=== PATIENT | male | born 1980 | race Caucasian/White ===

== ENCOUNTER 2020-04-24 17:52 | Inpatient (IN) | payer BC ==
[2020-04-24] MEDS ORDERED: Sodium Chloride 0.9% 10 ML Syringe FLUSH PRN (18:26)
[2020-04-24] MEDS ORDERED: Sodium Chloride 0.9% 1,000 ML IV ONE ×2 (18:28→19:43)
[2020-04-24] MEDS ORDERED: Ondansetron 4 MG/2 ML SDV IVPUSH ONE (18:29)
--- NOTE | 2020-04-24 18:38 | EDM.PDOC ---
ED HPI GENERAL MEDICAL PROBLEM - General Chief Complaint: Gastrointestinal Problem Stated Complaint: VOMITING Time Seen by Provider: 04/24/20 18:17 Source of Information: Reports: Patient, Family (), RN Notes Reviewed History Limitations: Reports: No Limitations - History of Present Illness INITIAL COMMENTS - FREE TEXT/NARRATIVE: Patient is a 40-year-old male who presents to the ED for the evaluation of his nausea and vomiting. Patient states last Tuesday, he started having some abdominal fullness feelings and epigastric pain. He notes that his made him see a provider, and he was found to have a blood glucose of over 400 at that time and he was clinically diagnosed with type 2 diabetes mellitus, he was started on metformin and Jardiance for this, and states that his blood sugar checks have all been under 200 at home. Patient states today he woke up feeling nauseous and lightheaded, and did vomit a few times. He notes that he took his blood glucose at around 3:30 PM, and it was found to be 175. Patient' s primary care provider is Jess Bowen. Patient is complaining of abdominal fullness with associated darker colored stools, darker colored vomit, the thought it looked like coffee ground emesis, he states that he is burping quite frequently as well, he is not complaining of any dysuria, and states that his urinary frequency has gotten better since starting the metformin and Jardiance. He denies fever/chills, cough/SOB, or any other recent illness. Patient would characterizes epigastric pain as a dull ache in nature. He denies any sort of abdominal surgeries that he has had. Abdomen Pain Score (Numeric/FACES): 3 - Related Data Allergies Allergy/AdvReac Type Severity Reaction Status Date / Time No Known Allergies Allergy Verified 04/24/20 18:14 Home Meds: Home Meds Empagliflozin [Jardiance] 10 mg PO DAILY 04/24/20 [History] metFORMIN [Glucophage] 500 mg PO BIDMEALS 04/24/20 [History] Past Medical History Cardiovascular History: Reports: Hypertension Gastrointestinal History: Reports: Diverticulosis Endocrine/Metabolic History: Reports: Diabetes, Type II, Obesity/BMI 30+ - Past Surgical History Musculoskeletal Surgical History: Reports: Other (See Below) Other Musculoskeletal Surgeries/Procedures:: L foot surgery Social & Family History - Tobacco Use Smoking Status *Q: Never Smoker Second Hand Smoke Exposure: No - Caffeine Use Caffeine Use: Reports: None - Recreational Drug Use Recreational Drug Use: No ED ROS GENERAL - Review of Systems Review Of Systems: Comprehensive ROS is negative, except as noted in HPI. ED EXAM, GI/ABD - Physical Exam Exam: See Below Exam Limited By: No Limitations General Appearance: Alert, WD/WN, No Apparent Distress (Patient does have a mildly fruity order to him.) Eyes: Bilateral: Normal Appearance Ears: Normal External Exam Nose: Normal Inspection Throat/Mouth: Normal Inspection, Normal Lips, Normal Teeth, Normal Gums, Normal Oropharynx, Normal Voice, No Airway Compromise Head: Atraumatic, Normocephalic Neck: Normal Inspection Respiratory/Chest: No Respiratory Distress, Lungs Clear, Normal Breath Sounds, No Accessory Muscle Use, Chest Non-Tender Cardiovascular: Normal Peripheral Pulses, Regular Rate, Rhythm, No Murmur GI/Abdominal Exam: Soft, No Distention (no obvious distension, pt does have a rather obese abdomen, so this would be difficult to appreciate), Tender (LLQ mainly), Abnormal Bowel Sounds (slightly hypoactive) Extremities: Normal Inspection, Normal Capillary Refill Neurological: Alert, Oriented, Normal Cognition, No Motor/Sensory Deficits Psychiatric: Normal Affect, Normal Mood Skin Exam: Warm, Dry, Intact, Normal Color, No Rash EKG INTERPRETATION EKG Date: 04/24/20 Time: 18:55 Rhythm: NSR (sinus tach) Rate (Beats/Min): 112 Wendel: Normal P-Wave: Present QRS: Normal ST-T: Normal QT: Normal Comparison: NA - No Prior EKG EKG Interpretation Comments: No obvious ischemia or acute ST changes noted, reviewed by myself and Dr. Baxter. Course - Vital Signs Last Recorded V/S: Last Vital Signs Temp 97.3 F 04/24/20 18:09 Pulse 118 H 04/24/20 18:09 Resp 20 04/24/20 18:09 BP 146/115 H 04/24/20 18:09 Pulse Ox 99 04/24/20 18:09 - Orders/Labs/Meds Orders: Active Orders 24 hr Category Date Time Status Blood Glucose Check, Bedside [RC] STAT Care 04/24/20 18:27 Active Cardiac Monitoring [RC] CONTINUOUS Care 04/24/20 18:27 Active EKG Documentation Completion [RC] STAT Care 04/24/20 18:48 Ordered POC Glucose [Blood Glucose Check, Bedside] [RC] Q1HR Care 04/24/20 20:26 Ordered Peripheral IV Care [RC] . DIRECTED Care 04/24/20 18:27 Ordered Chest 1V Frontal [CR] Stat Exams 04/24/20 20:24 Ordered ABG [BLOOD GAS ARTERIAL] [BG] Stat Lab 04/24/20 19:51 Ordered DRUG SCREEN, URINE [URCHEM] Stat Lab 04/24/20 20:32 LACTATE SEPSIS W/ REFLEX [CHEM] Stat Lab 04/24/20 19:39 Ordered UA W/MICROSCOPIC [URIN] Stat Lab 04/24/20 20:16 Results Dextrose 5%-0.45% NaCl [Dextrose 5%-1/2 NS] 1,000 ml Med 04/24/20 20:45 Ordered IV ASDIRECTED Sodium Chloride 0.9% [Normal Saline] 1,000 ml Med 04/24/20 19:43 Ordered IV ONETIME Sodium Chloride 0.9% [Saline Flush] Med 04/24/20 18:26 Active 10 ml FLUSH ASDIRECTED PRN Peripheral IV Insertion Adult [OM.PC] Stat Oth 04/24/20 18:27 Ordered Medication Orders Sodium Chloride (Normal Saline) 1,000 mls @ 999 mls/hr IV ONETIME ONE Stop: 04/24/20 20:43 Last Admin: 04/24/20 20:06 Dose: 999 mls/hr Sodium Chloride (Saline Flush) 10 ml FLUSH ASDIRECTED PRN PRN Reason: Keep Vein Open Last Admin: 04/24/20 18:50 Dose: 10 ml Labs: Laboratory Tests 04/24/20 04/24/20 04/24/20 Range/Units 18:35 18:39 18:39 WBC 11.97 H (4.23-9.07) K/mm3 RBC 5.53 (4.63-6.08) M/mm3 Hgb 17.9 H D (13.7-17.5) gm/dl Hct 52.4 H (40.1-51.0) % MCV 94.8 H (79.0-92.2) fl MCH 32.4 H (25.7-32.2) pg MCHC 34.2 (32.2-35.5) g/dl RDW Std Deviation 45.5 H (35.1-43.9) fL Plt Count 261 (163-337) K/mm3 MPV 11.2 (9.4-12.3) fl Neut % (Auto) 62.8 (34.0-67.9) % Lymph % (Auto) 27.7 (21.8-53.1) % [place] % (Auto) 6.4 (5.3-12.2) % Eos % (Auto) 0.5 L (0.8-7.0) Baso % (Auto) 0.4 (0.1-1.2) % Neut # (Auto) 7.51 H (1.78-5.38) K/mm3 Lymph # (Auto) 3.32 (1.32-3.57) K/mm3 [place] # (Auto) 0.77 (0.30-0.82) K/mm3 Eos # (Auto) 0.06 (0.04-0.54) K/mm3 Baso # (Auto) 0.05 (0.01-0.08) K/mm3 Manual Slide Review VBG pH 7.11 L (7.30-7.40) Sodium (136-145) mEq/L Potassium (3.5-5.1) mEq/L Chloride (98-107) mEq/L Carbon Dioxide (21-32) mEq/L Anion Gap (5-15) BUN (7-18) mg/dL Creatinine (0.7-1.3) mg/dL Est Cr Clr Drug Dosing mL/min Estimated GFR (MDRD) (>60) mL/min BUN/Creatinine Ratio (14-18) Glucose (74-106) mg/dL POC Glucose (70-105) mg/dL Serum Osmolality (280-300) mosm/kg Calcium (8.5-10.1) mg/dL Magnesium (1.8-2.4) mg/dl Total Bilirubin (0.2-1.0) mg/dL AST (15-37) U/L ALT (16-63) U/L Alkaline Phosphatase (46-116) U/L Total Protein (6.4-8.2) g/dl Albumin (3.4-5.0) g/dl Globulin gm/dL Albumin/Globulin Ratio (1-2) Lipase (73-393) U/L Urine Color (Yellow) Urine Appearance (Clear) Urine pH (5.0-8.0) Ur Specific [place] (1.005-1.030) Urine Protein (Negative) Urine Glucose (UA) (Negative) Urine Ketones (Negative) Urine Occult Blood (Negative) Urine Nitrite (Negative) Urine Bilirubin (Negative) Urine Urobilinogen (0.2-1.0) Ur Leukocyte Esterase (Negative) Ketones 7.52 (0.0-0.3) mM 04/24/20 04/24/20 04/24/20 Range/Units 18:39 18:55 20:16 WBC (4.23-9.07) K/mm3 RBC (4.63-6.08) M/mm3 Hgb (13.7-17.5) gm/dl Hct (40.1-51.0) % MCV (79.0-92.2) fl MCH (25.7-32.2) pg MCHC (32.2-35.5) g/dl RDW Std Deviation (35.1-43.9) fL Plt Count (163-337) K/mm3 MPV (9.4-12.3) fl Neut % (Auto) (34.0-67.9) % Lymph % (Auto) (21.8-53.1) % [place] % (Auto) (5.3-12.2) % Eos % (Auto) (0.8-7.0) Baso % (Auto) (0.1-1.2) % Neut # (Auto) (1.78-5.38) K/mm3 Lymph # (Auto) (1.32-3.57) K/mm3 [place] # (Auto) (0.30-0.82) K/mm3 Eos # (Auto) (0.04-0.54) K/mm3 Baso # (Auto) (0.01-0.08) K/mm3 Manual Slide Review VBG pH (7.30-7.40) Sodium 136 (136-145) mEq/L Potassium 5.2 H (3.5-5.1) mEq/L Chloride 102 (98-107) mEq/L Carbon Dioxide 12 L D (21-32) mEq/L Anion Gap 27.2 H (5-15) BUN 14 (7-18) mg/dL Creatinine 1.2 (0.7-1.3) mg/dL Est Cr Clr Drug Dosing 91.61 mL/min Estimated GFR (MDRD) > 60 (>60) mL/min BUN/Creatinine Ratio 11.7 L (14-18) Glucose 188 H (74-106) mg/dL POC Glucose 163 H (70-105) mg/dL Serum Osmolality 311 H (280-300) mosm/kg Calcium 8.6 (8.5-10.1) mg/dL Magnesium 2.5 H (1.8-2.4) mg/dl Total Bilirubin 0.8 (0.2-1.0) mg/dL AST 83 H (15-37) U/L ALT 133 H (16-63) U/L Alkaline Phosphatase 89 (46-116) U/L Total Protein 9.0 H (6.4-8.2) g/dl Albumin 4.1 (3.4-5.0) g/dl Globulin 4.9 gm/dL Albumin/Globulin Ratio 0.8 L (1-2) Lipase 138 (73-393) U/L Urine Color Light yellow (Yellow) Urine Appearance Clear (Clear) Urine pH 5.5 (5.0-8.0) Ur Specific [place] > or = 1.030 (1.005-1.030) Urine Protein 2+ H (Negative) Urine Glucose (UA) 2+ H (Negative) Urine Ketones 3+ H (Negative) Urine Occult Blood Trace-lysed H (Negative) Urine Nitrite Negative (Negative) Urine Bilirubin Negative (Negative) Urine Urobilinogen 0.2 (0.2-1.0) Ur Leukocyte Esterase Negative (Negative) Ketones (0.0-0.3) mM 06//20 Range/Units 20:37 WBC (4.23-9.07) K/mm3 RBC (4.63-6.08) M/mm3 Hgb (13.7-17.5) gm/dl Hct (40.1-51.0) % MCV (79.0-92.2) fl MCH (25.7-32.2) pg MCHC (32.2-35.5) g/dl RDW Std Deviation (35.1-43.9) fL Plt Count (163-337) K/mm3 MPV (9.4-12.3) fl Neut % (Auto) (34.0-67.9) % Lymph % (Auto) (21.8-53.1) % [place] % (Auto) (5.3-12.2) % Eos % (Auto) (0.8-7.0) Baso % (Auto) (0.1-1.2) % Neut # (Auto) (1.78-5.38) K/mm3 Lymph # (Auto) (1.32-3.57) K/mm3 [place] # (Auto) (0.30-0.82) K/mm3 Eos # (Auto) (0.04-0.54) K/mm3 Baso # (Auto) (0.01-0.08) K/mm3 Manual Slide Review VBG pH (7.30-7.40) Sodium (136-145) mEq/L Potassium (3.5-5.1) mEq/L Chloride (98-107) mEq/L Carbon Dioxide (21-32) mEq/L Anion Gap (5-15) BUN (7-18) mg/dL Creatinine (0.7-1.3) mg/dL Est Cr Clr Drug Dosing mL/min Estimated GFR (MDRD) (>60) mL/min BUN/Creatinine Ratio (14-18) Glucose (74-106) mg/dL POC Glucose 160 H (70-105) mg/dL Serum Osmolality (280-300) mosm/kg Calcium (8.5-10.1) mg/dL Magnesium (1.8-2.4) mg/dl Total Bilirubin (0.2-1.0) mg/dL AST (15-37) U/L ALT (16-63) U/L Alkaline Phosphatase (46-116) U/L Total Protein (6.4-8.2) g/dl Albumin (3.4-5.0) g/dl Globulin gm/dL Albumin/Globulin Ratio (1-2) Lipase (73-393) U/L Urine Color (Yellow) Urine Appearance (Clear) Urine pH (5.0-8.0) Ur Specific [place] (1.005-1.030) Urine Protein (Negative) Urine Glucose (UA) (Negative) Urine Ketones (Negative) Urine Occult Blood (Negative) Urine Nitrite (Negative) Urine Bilirubin (Negative) Urine Urobilinogen (0.2-1.0) Ur Leukocyte Esterase (Negative) Ketones (0.0-0.3) mM Meds: Medications Generic Name Dose Route Start Last Admin Trade Name Freq PRN Reason Stop Dose Admin Sodium Chloride 1,000 mls @ 999 mls/hr 04/24/20 19:43 04/24/20 20:06 Normal Saline IV 04/24/20 20:43 999 mls/hr ONETIME ONE Administration Sodium Chloride 10 ml 04/24/20 18:26 04/24/20 18:50 Saline Flush FLUSH 10 ml ASDIRECTED PRN Administration Keep Vein Open Discontinued Medications Generic Name Dose Route Start Last Admin Trade Name Freq PRN Reason Stop Dose Admin Sodium Chloride 1,000 mls @ 999 mls/hr 04/24/20 18:28 04/24/20 18:50 Normal Saline IV 04/24/20 19:28 999 mls/hr ASDIRECTED ONE Administration Lactated Ringer's 1,000 mls @ 250 mls/hr 04/24/20 20:30 Ringers, Lactated IV ASDIRECTED YVROSE Ondansetron HCl 4 mg 04/24/20 18:29 04/24/20 18:50 Zofran IVPUSH 04/24/20 18:30 4 mg ONETIME ONE Administration - Re-Assessments/Exams Free Text/Narrative Re-Assessment/Exam: 04/24/20 19:46 Patient presents to the ED for evaluation of a few different complaints. I am mostly concerned about his ketotic smell on appearance, blood sugars at bedside and on the metabolic panel were 163 and 188 respectively. His white blood cell count is modestly elevated at 11.97 with 2% bandemia, his venous pH is acidotic at 7.11, potassium is elevated at 5.2, bicarb 4, dioxide is low at 12, anion gap severely elevated at 27.2, creatinine is within normal range at 1.2 at this time, ketones are 7.52 which would point to ketoacidosis in nature, I did go over all of these labs with Dr. Estrada, and he would agree but finds it suspicious that the patient's blood glucose does not reflect this. He does recommend getting a lactic acid to see if this is a lactic acidosis. The second liter of IV fluids has been ordered for electrolyte disturbance. Will also order an ABG. Patient will likely need hospital admission at this time. Abdomen x-ray is done, however due to his obesity, I will await radiology read for official opinion. There are no obvious air fluid levels 04/24/20 20:12 Official radiology read does demonstrate slight increased stool within the colon , abdomen does appear rather gasless as well. 04/24/20 20:38 Case was discussed with Dr. Jin, he does accept the patient for admission to the ICU, and would like the patient to be on D5 half-normal saline at a rate of 200 mils per hour. Departure - Departure Time of Disposition: 20:39 Disposition: Admitted As Inpatient 68 Condition: Good Clinical Impression: DKA (diabetic ketoacidosis) Qualifiers: Diabetes mellitus type: type 2 Diabetes mellitus complication detail: without coma Qualified Code(s): E11.10 - Type 2 diabetes mellitus with ketoacidosis without coma - Discharge Information *PRESCRIPTION DRUG MONITORING PROGRAM REVIEWED*: No *COPY OF PRESCRIPTION DRUG MONITORING REPORT IN PATIENT LORENZO: No Referrals: Jess Bowen MD [Primary Care Provider] - Forms: ED Department Discharge Sepsis Event Note - Evaluation Sepsis Screening Result: No Definite Risk - Focused Exam Vital Signs: Vital Signs Temp Pulse Resp BP Pulse Ox 04/24/20 18:09 97.3 F 118 H 20 146/115 H 99 Date Exam was Performed: 04/24/20 Time Exam was Performed: 20:38 - My Orders Last 24 Hours: My Active Orders 04/24/20 18:26 Sodium Chloride 0.9% [Saline Flush] 10 ml FLUSH ASDIRECTED PRN 04/24/20 18:27 Blood Glucose Check, Bedside [RC] STAT Cardiac Monitoring [RC] CONTINUOUS Peripheral IV Care [RC] . DIRECTED Peripheral IV Insertion Adult [OM.PC] Stat 04/24/20 18:48 EKG Documentation Completion [RC] STAT 04/24/20 19:39 LACTATE SEPSIS W/ REFLEX [CHEM] Stat 04/24/20 19:43 Sodium Chloride 0.9% [Normal Saline] 1,000 ml IV ONETIME 04/24/20 19:51 ABG [BLOOD GAS ARTERIAL] [BG] Stat 04/24/20 20:16 UA W/MICROSCOPIC [URIN] Stat 04/24/20 20:24 Chest 1V Frontal [CR] Stat 04/24/20 20:26 POC Glucose [Blood Glucose Check, Bedside] [RC] Q1HR 04/24/20 20:32 DRUG SCREEN, URINE [URCHEM] Stat 04/24/20 20:45 Dextrose 5%-0.45% NaCl [Dextrose 5%-1/2 NS] 1,000 ml IV ASDIRECTED - Assessment/Plan Last 24 Hours: My Active Orders 04/24/20 18:26 Sodium Chloride 0.9% [Saline Flush] 10 ml FLUSH ASDIRECTED PRN 04/24/20 18:27 Blood Glucose Check, Bedside [RC] STAT Cardiac Monitoring [RC] CONTINUOUS Peripheral IV Care [RC] . DIRECTED Peripheral IV Insertion Adult [OM.PC] Stat 04/24/20 18:48 EKG Documentation Completion [RC] STAT 04/24/20 19:39 LACTATE SEPSIS W/ REFLEX [CHEM] Stat 04/24/20 19:43 Sodium Chloride 0.9% [Normal Saline] 1,000 ml IV ONETIME 04/24/20 19:51 ABG [BLOOD GAS ARTERIAL] [BG] Stat 04/24/20 20:16 UA W/MICROSCOPIC [URIN] Stat 04/24/20 20:24 Chest 1V Frontal [CR] Stat 04/24/20 20:26 POC Glucose [Blood Glucose Check, Bedside] [RC] Q1HR 04/24/20 20:32 DRUG SCREEN, URINE [URCHEM] Stat 04/24/20 20:45 Dextrose 5%-0.45% NaCl [Dextrose 5%-1/2 NS] 1,000 ml IV ASDIRECTED
--- NOTE | 2020-04-24 20:08 | CR ---
Abdomen: Supine and upright views of the abdomen were obtained. Abdomen is rather gasless which can be seen normally. Small calcification is seen within the left lower pelvis most likely due to phlebolith. No free air is seen. Bony structures appear within normal limits for the patient's age. Slight increased stool within the colon is seen. Impression: 1. Slight increased within the colon. 2. Nothing acute is appreciated. Diagnostic code #2 This report was dictated in MDT
[2020-04-24] MEDS ORDERED: Lactated Ringers 1,000 ML IV SCH (20:30)
[2020-04-24] MEDS: Dextrose 5%-0.45% NaCl 1,000 ML IV SCH (21:19)
[2020-04-24] MEDS ORDERED: Metoclopramide 10 MG/2 ML SDV IVPUSH ONE (22:12)
--- NOTE | 2020-04-24 22:28 | PCM.HP.2 ---
H&P History of Present Illness - General Date of Service: 04/24/20 Admit Problem/Dx: Admission Diagnosis/Problem Admission Diagnosis/Problem Diabetic ketoacidosis without coma - History of Present Illness Initial Comments - Free Text/Narative: 40-year-old obese male with family history of type 2 diabetes presents to the emergency department with abdominal discomfort, nausea, and vomiting. Patient states that for the last month he has had polyuria and polydipsia with increasing fullness and epigastric pain. On Tuesday, April 19 patient's took his blood sugars and they were 480. Next he was seen by his primary care provider and apparently his blood sugars were somewhere above 300 and they started him on metformin 500 mg twice daily and Jardiance. Patient was diagnosed with type 2 diabetes. Patient felt fine the next day or 2, but yesterday started having increased nausea, lightheadedness, and abdominal discomfort. Patient vomited today after waking up from a nap at around 1500 hrs. His fingerstick blood sugar was 175. Patient denies any chest pain, shortness of breath, fever, chills, cough, dysuria, hematochezia, or melena. He was given half of a sandwich in the emergency department which made him nauseated. In the emergency department patient was found to be tachycardic with heart rate of 110-120 with elevated blood pressure 146/115. Initial glucose was 188 with serum ketones of 7.52. Anion gap was 27.2, BUN 14, creatinine 1.2, potassium 5.2, sodium 136. Lipase is 138. AST 83, ALT 133. UA negative for infection but positive for 2+ protein, 3+ occult blood. Patient was given 2 L normal saline bolus and started on D5 half-normal saline at 200 mL an hour. ABG: pH 7.12, PCO2 21.5, PO2 112 on room air, bicarb 6.7. Abdomen Pain Score (Numeric/FACES): 3 - Related Data Allergies/Adverse Reactions: Allergies Allergy/AdvReac Type Severity Reaction Status Date / Time No Known Allergies Allergy Verified 04/24/20 21:55 Home Medications: Home Meds Empagliflozin [Jardiance] 10 mg PO DAILY 04/24/20 [History] metFORMIN [Glucophage] 500 mg PO BID 04/24/20 [History] Past Medical History Cardiovascular History: Reports: Hypertension Gastrointestinal History: Reports: Diverticulosis Endocrine/Metabolic History: Reports: Diabetes, Type II, Obesity/BMI 30+ - Infectious Disease History Infectious Disease History: Reports: Chicken Pox - Past Surgical History Musculoskeletal Surgical History: Reports: Other (See Below) Other Musculoskeletal Surgeries/Procedures:: L foot surgery Social & Family History - Family History Family Medical History: Noncontributory - Tobacco Use Smoking Status *Q: Never Smoker Second Hand Smoke Exposure: No - Caffeine Use Caffeine Use: Reports: None - Recreational Drug Use Recreational Drug Use: No H&P Review of Systems - Review of Systems: Review Of Systems: Comprehensive ROS is negative, except as noted in HPI. Exam - Exam Exam: See Below - Vital Signs Vital Signs: Last Vital Signs Temp 98 F 04/24/20 21:43 Pulse 118 H 04/24/20 21:30 Resp 18 04/24/20 21:43 BP 139/100 H 04/24/20 21:43 Pulse Ox 100 04/24/20 21:43 Weight: 295 lb 1.6 oz - Exam Quality Assessment: No: Supplemental Oxygen General: Alert, Oriented, 4 HEENT: Conjunctiva Clear, EOMI, Hearing Intact. No: Mucosa Moist & [place] (Dry) Neck: Supple, Trachea Midline, 2 Lungs: Clear to Auscultation, Normal Respiratory Effort Cardiovascular: Regular Rhythm, Normal S1, Normal S2, Tachycardia GI/Abdominal Exam: Soft, Non-Tender, No Organomegaly, No Abnormal Bruit, No Mass , Distended, Abnormal Bowel Sounds (Decreased). No: Normal Bowel Sounds Extremities: Normal Inspection, Normal Range of Motion, Non-Tender, No Pedal Edema, Normal Capillary Refill Skin: Warm, Dry, Intact Neurological: Cranial Nerves Intact Neuro Extensive - Mental Status: Alert, Oriented x3, Normal Mood/Affect, Normal Cognition Psychiatric: Alert, Normal Affect, Normal Mood - Patient Data Lab Results Last 24 hrs: Laboratory Results - last 24 hr 04/24/20 04/24/20 04/24/20 Range/Units 18:35 18:39 18:39 WBC 11.97 H (4.23-9.07) K/mm3 RBC 5.53 (4.63-6.08) M/mm3 Hgb 17.9 H D (13.7-17.5) gm/dl Hct 52.4 H (40.1-51.0) % MCV 94.8 H (79.0-92.2) fl MCH 32.4 H (25.7-32.2) pg MCHC 34.2 (32.2-35.5) g/dl RDW Std Deviation 45.5 H (35.1-43.9) fL Plt Count 261 (163-337) K/mm3 MPV 11.2 (9.4-12.3) fl Neut % (Auto) 62.8 (34.0-67.9) % Lymph % (Auto) 27.7 (21.8-53.1) % [place] % (Auto) 6.4 (5.3-12.2) % Eos % (Auto) 0.5 L (0.8-7.0) Baso % (Auto) 0.4 (0.1-1.2) % Neut # (Auto) 7.51 H (1.78-5.38) K/mm3 Lymph # (Auto) 3.32 (1.32-3.57) K/mm3 [place] # (Auto) 0.77 (0.30-0.82) K/mm3 Eos # (Auto) 0.06 (0.04-0.54) K/mm3 Baso # (Auto) 0.05 (0.01-0.08) K/mm3 Manual Slide Review Puncture Site ABG pH (7.35-7.45) ABG pCO2 (35.0-45.0) mmHg ABG pO2 (80.0-100.0) mmHg ABG HCO3 (22.0-26.0) meq/L ABG O2 Saturation (96.0-97.0) % ABG Base Excess (-2-2.0) Luis Test VBG pH 7.11 L (7.30-7.40) A-a Gradient mmHg O2 Delivery Device FiO2 (21.00-100.00) % Sodium (136-145) mEq/L Potassium (3.5-5.1) mEq/L Chloride (98-107) mEq/L Carbon Dioxide (21-32) mEq/L Anion Gap (5-15) BUN (7-18) mg/dL Creatinine (0.7-1.3) mg/dL Est Cr Clr Drug Dosing mL/min Estimated GFR (MDRD) (>60) mL/min BUN/Creatinine Ratio (14-18) Glucose (74-106) mg/dL POC Glucose (70-105) mg/dL Serum Osmolality (280-300) mosm/kg Lactic Acid (0.4-2.0) mmol/L Calcium (8.5-10.1) mg/dL Magnesium (1.8-2.4) mg/dl Total Bilirubin (0.2-1.0) mg/dL AST (15-37) U/L ALT (16-63) U/L Alkaline Phosphatase (46-116) U/L Total Protein (6.4-8.2) g/dl Albumin (3.4-5.0) g/dl Globulin gm/dL Albumin/Globulin Ratio (1-2) Lipase (73-393) U/L Urine Color (Yellow) Urine Appearance (Clear) Urine pH (5.0-8.0) Ur Specific [place] (1.005-1.030) Urine Protein (Negative) Urine Glucose (UA) (Negative) Urine Ketones (Negative) Urine Occult Blood (Negative) Urine Nitrite (Negative) Urine Bilirubin (Negative) Urine Urobilinogen (0.2-1.0) Ur Leukocyte Esterase (Negative) Urine RBC (0-5) /hpf Urine WBC (0-5) /hpf Ur Squamous Epith Cells (0-5) /hpf Urine Bacteria (FEW) /hpf Urine Mucus (FEW) /hpf Urine Opiates Screen (MBTRCD=221) Ur Buprenorphine Scrn (CUTOFF=10) Ur Oxycodone Screen (EHD0XD=022) Urine Methadone Screen (RWB9IX=233) Ur Propoxyphene Screen (XIOQDL=148) Ur Barbiturates Screen (TWFGNU=525) Ur Tricyclics Screen (XYFNRL=022) Ur Phencyclidine Scrn (CUTOFF=25) Ur Amphetamine Screen (ZUXPFE=258) U Methamphetamines Scrn (EOEYKE=709) U Benzodiazepines Scrn (SYPZJB=974) U Cocaine Metab Screen (PIEQWE=980) U Marijuana (THC) Screen (CUTOFF=50) Ketones 7.52 (0.0-0.3) mM 04/24/20 04/24/20 04/24/20 Range/Units 18:39 18:55 20:03 WBC (4.23-9.07) K/mm3 RBC (4.63-6.08) M/mm3 Hgb (13.7-17.5) gm/dl Hct (40.1-51.0) % MCV (79.0-92.2) fl MCH (25.7-32.2) pg MCHC (32.2-35.5) g/dl RDW Std Deviation (35.1-43.9) fL Plt Count (163-337) K/mm3 MPV (9.4-12.3) fl Neut % (Auto) (34.0-67.9) % Lymph % (Auto) (21.8-53.1) % [place] % (Auto) (5.3-12.2) % Eos % (Auto) (0.8-7.0) Baso % (Auto) (0.1-1.2) % Neut # (Auto) (1.78-5.38) K/mm3 Lymph # (Auto) (1.32-3.57) K/mm3 [place] # (Auto) (0.30-0.82) K/mm3 Eos # (Auto) (0.04-0.54) K/mm3 Baso # (Auto) (0.01-0.08) K/mm3 Manual Slide Review Puncture Site ABG pH (7.35-7.45) ABG pCO2 (35.0-45.0) mmHg ABG pO2 (80.0-100.0) mmHg ABG HCO3 (22.0-26.0) meq/L ABG O2 Saturation (96.0-97.0) % ABG Base Excess (-2-2.0) Luis Test VBG pH (7.30-7.40) A-a Gradient mmHg O2 Delivery Device FiO2 (21.00-100.00) % Sodium 136 (136-145) mEq/L Potassium 5.2 H (3.5-5.1) mEq/L Chloride 102 (98-107) mEq/L Carbon Dioxide 12 L D (21-32) mEq/L Anion Gap 27.2 H (5-15) BUN 14 (7-18) mg/dL Creatinine 1.2 (0.7-1.3) mg/dL Est Cr Clr Drug Dosing 91.61 mL/min Estimated GFR (MDRD) > 60 (>60) mL/min BUN/Creatinine Ratio 11.7 L (14-18) Glucose 188 H (74-106) mg/dL POC Glucose 163 H (70-105) mg/dL Serum Osmolality 311 H (280-300) mosm/kg Lactic Acid 1.2 (0.4-2.0) mmol/L Calcium 8.6 (8.5-10.1) mg/dL Magnesium 2.5 H (1.8-2.4) mg/dl Total Bilirubin 0.8 (0.2-1.0) mg/dL AST 83 H (15-37) U/L ALT 133 H (16-63) U/L Alkaline Phosphatase 89 (46-116) U/L Total Protein 9.0 H (6.4-8.2) g/dl Albumin 4.1 (3.4-5.0) g/dl Globulin 4.9 gm/dL Albumin/Globulin Ratio 0.8 L (1-2) Lipase 138 (73-393) U/L Urine Color (Yellow) Urine Appearance (Clear) Urine pH (5.0-8.0) Ur Specific [place] (1.005-1.030) Urine Protein (Negative) Urine Glucose (UA) (Negative) Urine Ketones (Negative) Urine Occult Blood (Negative) Urine Nitrite (Negative) Urine Bilirubin (Negative) Urine Urobilinogen (0.2-1.0) Ur Leukocyte Esterase (Negative) Urine RBC (0-5) /hpf Urine WBC (0-5) /hpf Ur Squamous Epith Cells (0-5) /hpf Urine Bacteria (FEW) /hpf Urine Mucus (FEW) /hpf Urine Opiates Screen (RGUFMG=928) Ur Buprenorphine Scrn (CUTOFF=10) Ur Oxycodone Screen (AIC5OJ=420) Urine Methadone Screen (KWM2JU=843) Ur Propoxyphene Screen (RZUWYM=522) Ur Barbiturates Screen (VARUBA=678) Ur Tricyclics Screen (QMWRVC=717) Ur Phencyclidine Scrn (CUTOFF=25) Ur Amphetamine Screen (NXSUKK=011) U Methamphetamines Scrn (QNYWJW=709) U Benzodiazepines Scrn (IUHSLD=690) U Cocaine Metab Screen (FXBQDN=265) U Marijuana (THC) Screen (CUTOFF=50) Ketones (0.0-0.3) mM 04/24/20 04/24/20 04/24/20 Range/Units 20:15 20:16 20:37 WBC (4.23-9.07) K/mm3 RBC (4.63-6.08) M/mm3 Hgb (13.7-17.5) gm/dl Hct (40.1-51.0) % MCV (79.0-92.2) fl MCH (25.7-32.2) pg MCHC (32.2-35.5) g/dl RDW Std Deviation (35.1-43.9) fL Plt Count (163-337) K/mm3 MPV (9.4-12.3) fl Neut % (Auto) (34.0-67.9) % Lymph % (Auto) (21.8-53.1) % [place] % (Auto) (5.3-12.2) % Eos % (Auto) (0.8-7.0) Baso % (Auto) (0.1-1.2) % Neut # (Auto) (1.78-5.38) K/mm3 Lymph # (Auto) (1.32-3.57) K/mm3 [place] # (Auto) (0.30-0.82) K/mm3 Eos # (Auto) (0.04-0.54) K/mm3 Baso # (Auto) (0.01-0.08) K/mm3 Manual Slide Review Puncture Site ABG pH (7.35-7.45) ABG pCO2 (35.0-45.0) mmHg ABG pO2 (80.0-100.0) mmHg ABG HCO3 (22.0-26.0) meq/L ABG O2 Saturation (96.0-97.0) % ABG Base Excess (-2-2.0) Luis Test VBG pH (7.30-7.40) A-a Gradient mmHg O2 Delivery Device FiO2 (21.00-100.00) % Sodium (136-145) mEq/L Potassium (3.5-5.1) mEq/L Chloride (98-107) mEq/L Carbon Dioxide (21-32) mEq/L Anion Gap (5-15) BUN (7-18) mg/dL Creatinine (0.7-1.3) mg/dL Est Cr Clr Drug Dosing mL/min Estimated GFR (MDRD) (>60) mL/min BUN/Creatinine Ratio (14-18) Glucose (74-106) mg/dL POC Glucose 160 H (70-105) mg/dL Serum Osmolality (280-300) mosm/kg Lactic Acid (0.4-2.0) mmol/L Calcium (8.5-10.1) mg/dL Magnesium (1.8-2.4) mg/dl Total Bilirubin (0.2-1.0) mg/dL AST (15-37) U/L ALT (16-63) U/L Alkaline Phosphatase (46-116) U/L Total Protein (6.4-8.2) g/dl Albumin (3.4-5.0) g/dl Globulin gm/dL Albumin/Globulin Ratio (1-2) Lipase (73-393) U/L Urine Color Light yellow (Yellow) Urine Appearance Clear (Clear) Urine pH 5.5 (5.0-8.0) Ur Specific [place] > or = 1.030 (1.005-1.030) Urine Protein 2+ H (Negative) Urine Glucose (UA) 2+ H (Negative) Urine Ketones 3+ H (Negative) Urine Occult Blood Trace-lysed H (Negative) Urine Nitrite Negative (Negative) Urine Bilirubin Negative (Negative) Urine Urobilinogen 0.2 (0.2-1.0) Ur Leukocyte Esterase Negative (Negative) Urine RBC 0-5 (0-5) /hpf Urine WBC 0-5 (0-5) /hpf Ur Squamous Epith Cells 0-5 (0-5) /hpf Urine Bacteria Few (FEW) /hpf Urine Mucus Moderate H (FEW) /hpf Urine Opiates Screen Negative (RZTCVX=938) Ur Buprenorphine Scrn Negative (CUTOFF=10) Ur Oxycodone Screen Negative (VBC0MD=619) Urine Methadone Screen Negative (WSM1TO=261) Ur Propoxyphene Screen Negative (PPZFII=069) Ur Barbiturates Screen Negative (JQVOVA=196) Ur Tricyclics Screen Negative (EEIHEB=947) Ur Phencyclidine Scrn Negative (CUTOFF=25) Ur Amphetamine Screen Negative (VGRNTW=032) U Methamphetamines Scrn Negative (QBQRGC=504) U Benzodiazepines Scrn Negative (GFWOTV=739) U Cocaine Metab Screen Negative (QFHLXZ=065) U Marijuana (THC) Screen Negative (CUTOFF=50) Ketones (0.0-0.3) mM 04/24/20 04/24/20 Range/Units 20:40 21:53 WBC (4.23-9.07) K/mm3 RBC (4.63-6.08) M/mm3 Hgb (13.7-17.5) gm/dl Hct (40.1-51.0) % MCV (79.0-92.2) fl MCH (25.7-32.2) pg MCHC (32.2-35.5) g/dl RDW Std Deviation (35.1-43.9) fL Plt Count (163-337) K/mm3 MPV (9.4-12.3) fl Neut % (Auto) (34.0-67.9) % Lymph % (Auto) (21.8-53.1) % [place] % (Auto) (5.3-12.2) % Eos % (Auto) (0.8-7.0) Baso % (Auto) (0.1-1.2) % Neut # (Auto) (1.78-5.38) K/mm3 Lymph # (Auto) (1.32-3.57) K/mm3 [place] # (Auto) (0.30-0.82) K/mm3 Eos # (Auto) (0.04-0.54) K/mm3 Baso # (Auto) (0.01-0.08) K/mm3 Manual Slide Review Puncture Site Rt radial ABG pH 7.12 L* (7.35-7.45) ABG pCO2 21.5 L (35.0-45.0) mmHg ABG pO2 112.0 H (80.0-100.0) mmHg ABG HCO3 6.7 L (22.0-26.0) meq/L ABG O2 Saturation 96.8 (96.0-97.0) % ABG Base Excess -22.5 L (-2-2.0) Luis Test Positive VBG pH (7.30-7.40) A-a Gradient 12 mmHg O2 Delivery Device Room air FiO2 21.00 (21.00-100.00) % Sodium (136-145) mEq/L Potassium (3.5-5.1) mEq/L Chloride (98-107) mEq/L Carbon Dioxide (21-32) mEq/L Anion Gap (5-15) BUN (7-18) mg/dL Creatinine (0.7-1.3) mg/dL Est Cr Clr Drug Dosing mL/min Estimated GFR (MDRD) (>60) mL/min BUN/Creatinine Ratio (14-18) Glucose (74-106) mg/dL POC Glucose 156 H (70-105) mg/dL Serum Osmolality (280-300) mosm/kg Lactic Acid (0.4-2.0) mmol/L Calcium (8.5-10.1) mg/dL Magnesium (1.8-2.4) mg/dl Total Bilirubin (0.2-1.0) mg/dL AST (15-37) U/L ALT (16-63) U/L Alkaline Phosphatase (46-116) U/L Total Protein (6.4-8.2) g/dl Albumin (3.4-5.0) g/dl Globulin gm/dL Albumin/Globulin Ratio (1-2) Lipase (73-393) U/L Urine Color (Yellow) Urine Appearance (Clear) Urine pH (5.0-8.0) Ur Specific [place] (1.005-1.030) Urine Protein (Negative) Urine Glucose (UA) (Negative) Urine Ketones (Negative) Urine Occult Blood (Negative) Urine Nitrite (Negative) Urine Bilirubin (Negative) Urine Urobilinogen (0.2-1.0) Ur Leukocyte Esterase (Negative) Urine RBC (0-5) /hpf Urine WBC (0-5) /hpf Ur Squamous Epith Cells (0-5) /hpf Urine Bacteria (FEW) /hpf Urine Mucus (FEW) /hpf Urine Opiates Screen (OXSOSR=289) Ur Buprenorphine Scrn (CUTOFF=10) Ur Oxycodone Screen (EBB9RN=503) Urine Methadone Screen (XQK9CN=130) Ur Propoxyphene Screen (LOKHFC=195) Ur Barbiturates Screen (PWMLHT=529) Ur Tricyclics Screen (ZAJNSD=818) Ur Phencyclidine Scrn (CUTOFF=25) Ur Amphetamine Screen (KXWOHR=823) U Methamphetamines Scrn (UYOHGJ=168) U Benzodiazepines Scrn (ZURQNL=555) U Cocaine Metab Screen (NQVKNM=219) U Marijuana (THC) Screen (CUTOFF=50) Ketones (0.0-0.3) mM Result Diagrams: 04/25/20 06:15 04/25/20 06:15 Sepsis Event Note - Evaluation Sepsis Screening Result: No Definite Risk - Focused Exam Vital Signs: Vital Signs Temp Pulse Resp BP Pulse Ox 04/24/20 21:43 98 F 18 139/100 H 100 04/24/20 21:30 118 H 18 100 04/24/20 18:09 97.3 F 118 H 20 146/115 H 99 Date Exam was Performed: 04/25/20 Time Exam was Performed: 10:21 Problem List Initiated/Reviewed/Updated: Yes Orders Last 24hrs: Active Orders 24 hr Category Date Time Status Admission Status [Patient Status] [ADT] Routine ADT 04/24/20 20:40 Active Blood Glucose Check, Bedside [RC] Q2H Care 04/25/20 00:01 Active Cardiac Monitoring [RC] CONTINUOUS Care 04/24/20 18:27 Active Oxygen Therapy [RC] PRN Care 04/24/20 22:18 Active Peripheral IV Care [RC] Q2HR Care 04/24/20 18:27 Active Up ad Margie [RC] ASDIRECTED Care 04/24/20 22:18 Active VTE/DVT Education [RC] PER UNIT ROUTINE Care 04/24/20 22:18 Active Vital Signs [RC] ASDIRECTED Care 04/24/20 22:18 Active Nothing per Oral Now Diet [DIET] Diet 04/24/20 Dinner Active Chest 1V Frontal [CR] Stat Exams 04/24/20 20:24 Taken BASIC METABOLIC PANEL,BMP [CHEM] Q4H Lab 04/24/20 22:24 Ordered BASIC METABOLIC PANEL,BMP [CHEM] Q4H Lab 04/25/20 02:24 Ordered BASIC METABOLIC PANEL,BMP [CHEM] Q4H Lab 04/25/20 06:24 Ordered BASIC METABOLIC PANEL,BMP [CHEM] Q4H Lab 04/25/20 10:24 Ordered CBC WITH AUTO DIFF [HEME] AM Lab 04/25/20 05:11 Ordered GLYCOSYLATED HEMOGLOBIN,HGBA1C [CHEM] AM Lab 04/25/20 05:11 Ordered MAGNESIUM [CHEM] Q4H Lab 04/24/20 22:24 Ordered MAGNESIUM [CHEM] Q4H Lab 04/25/20 02:24 Ordered MAGNESIUM [CHEM] Q4H Lab 04/25/20 06:24 Ordered MAGNESIUM [CHEM] Q4H Lab 04/25/20 10:24 Ordered PHOSPHORUS [CHEM] Q4H Lab 04/24/20 22:24 Ordered PHOSPHORUS [CHEM] Q4 Lab 04/25/20 02:24 Ordered PHOSPHORUS [CHEM] Q4H Lab 04/25/20 06:24 Ordered PHOSPHORUS [CHEM] Q4H Lab 04/25/20 10:24 Ordered Dextrose 5%-0.45% NaCl [Dextrose 5%-1/2 NS] 1,000 ml Med 04/24/20 20:45 Active IV ASDIRECTED Enoxaparin [Lovenox] Med 04/25/20 09:00 Active 40 mg SUBCUT DAILY Insulin Lispro [HumaLOG] Med 04/24/20 22:30 Active See Protocol SUBCUT Q2H Ondansetron [Zofran] Med 04/24/20 22:30 Active 4 mg IV Q4H PRN Sodium Chloride 0.9% [Saline Flush] Med 04/24/20 18:26 Active 10 ml FLUSH ASDIRECTED PRN Peripheral IV Insertion Adult [OM.PC] Stat Oth 04/24/20 18:27 Ordered Resuscitation Status Routine Resus Stat 04/24/20 22:18 Ordered Medication Orders Enoxaparin Sodium (Lovenox) 40 mg SUBCUT DAILY YVROSE Dextrose/Sodium Chloride (Dextrose 5%-1/2 Ns) 1,000 mls @ 200 mls/hr IV ASDIRECTED YVROSE Last Admin: 04/24/20 21:19 Dose: 200 mls/hr Insulin Human Lispro (Humalog) 0 unit SUBCUT Q2H YVROSE; Protocol Ondansetron HCl (Zofran) 4 mg IV Q4H PRN PRN Reason: Nausea/Vomiting Sodium Chloride (Saline Flush) 10 ml FLUSH ASDIRECTED PRN PRN Reason: Keep Vein Open Last Admin: 04/24/20 18:50 Dose: 10 ml Assessment/Plan Comment:: Ketoacidosis likely secondary to Jardiance * Patient was recently started on Jardiance and metformin. * Blood sugars appear to be well controlled with blood sugars at 188 on presentation to the emergency department * Ketones 7.52 * Anion gap 27.2 Plan * Treat like diabetic ketoacidosis with every 2 fingerstick blood sugars, cover with rapid acting subcu insulin using a sliding scale * D5 half-normal saline at 200 mL an hour until closure of anion gap * N.p.o. * BMP, mag, phosphorus every 4 hours * Follow venous pH * Hold metformin * Stop Jardiance * Hemoglobin A1c Abdominal pain, nausea, vomiting * Likely secondary to ketoacidosis * Patient did have abdominal discomfort up to 1 month prior to diagnosis of diabetes * Abdominal x-ray shows no fluid level and mildly increased stool otherwise normal Plan * Watchful waiting overnight to see if it improves with improvement in ketoacidosis * Zofran 4 mg every 4 hours as needed * Reglan 10 mg IV as needed * N.p.o. * Consider CT in the morning if not improving Hypertension * Blood pressures mildly to moderately elevated since presentation in the emergency department * On no blood pressure medications at home * Blood pressure could be worse secondary to pain Plan * Follow blood pressure while in the ICU. * Consider treatment as outpatient if it continues to be elevated. VTE prophylaxis with Lovenox CODE STATUS: Full code Disposition: Admit to ICU - Mortality Measure Prognosis:: Good
[2020-04-24] MEDS ORDERED: traZODone 50 MG Tab PO PRN (23:22)
[2020-04-24] MEDS: Insulin Lispro 100 Units/ML 3 ML Vial SUBCUT SCH (23:44)
[2020-04-25] MEDS: Insulin Lispro 100 Units/ML 3 ML Vial SUBCUT SCH ×12 (00:08→21:49)
[2020-04-25] MEDS: Dextrose 5%-0.45% NaCl 1,000 ML IV SCH ×5 (02:05→21:46)
[2020-04-25 06:51] LABS: HEMOGLOBIN A1C 9.6 % (4.50-6.20)
[2020-04-25] MEDS: Ondansetron 4 MG/2 ML SDV IV PRN ×2 (08:13→17:10)
[2020-04-25] MEDS ORDERED: Sodium Chloride 0.9% 500 ML IV ONE (08:18)
[2020-04-25] MEDS ORDERED: Metoclopramide 10 MG/2 ML SDV IVPUSH ONE (08:42)
[2020-04-25] MEDS: HYDROmorphone 0.5 MG/0.5 ML Syringe IVPUSH PRN (08:52)
[2020-04-25] MEDS: Enoxaparin 40 MG/0.4 ML Syringe SUBCUT SCH (08:54)
--- NOTE | 2020-04-25 09:12 | CR ---
Chest: Frontal view of the chest was obtained. Comparison: No prior chest imaging is available. Heart size and mediastinum are normal. Lungs are clear with no acute parenchymal change. Bony structures are grossly intact. Impression: 1. Nothing acute is appreciated on frontal chest x-ray. Diagnostic code #1 This report was dictated in MDT
[2020-04-25] MEDS ORDERED: Sodium Chloride 0.9% 10 ML Syringe FLUSH PRN (09:43)
[2020-04-25] MEDS ORDERED: Iopamidol 755 Mg/ML 100 ML Bottle IVPUSH ONE (09:43)
[2020-04-25] MEDS ORDERED: Diatrizoate Meglumine/Diatrizoate Sodium 37% 120 ML Bottle PO ONE (09:43)
--- NOTE | 2020-04-25 10:11 | PCM.PN ---
- General Info Date of Service: 04/25/20 Admission Dx/Problem (Free Text): Admission Diagnosis/Problem Admission Diagnosis/Problem Diabetic ketoacidosis without coma Subjective Update: Patient continues to complain of abdominal pain, nausea, and one episode of vomiting. No fever chills overnight. Anion gap has not come down since hospitalization. - Review of Systems General: Reports: Fatigue HEENT: Reports: No Symptoms Pulmonary: Reports: No Symptoms Cardiovascular: Reports: No Symptoms Gastrointestinal: Reports: Abdominal Pain, Nausea, Vomiting Musculoskeletal: Reports: No Symptoms Skin: Reports: No Symptoms Neurological: Reports: No Symptoms Psychiatric: Reports: No Symptoms - Patient Data Vitals - Most Recent: Last Vital Signs Temp 97.6 F 04/25/20 08:00 Pulse 118 H 04/25/20 08:02 Resp 18 04/25/20 08:00 BP 138/98 H 04/25/20 08:04 Pulse Ox 97 04/25/20 08:02 Weight - Most Recent: 295 lb 6.4 oz I&O - Last 24 Hours: Intake & Output 04/24/20 04/25/20 04/25/20 22:59 06:59 14:59 Intake Total 1263 Output Total 1500 2049 Balance -237 -2049 Imaging Impressions - Last 24 Hours: CT of the abdomen with contrast Impression: 1. Severe fatty infiltration within the liver with mild hepatomegaly. 2. Other findings believed to be nonacute. Please see full report for details. Lab Results Last 24 Hours: Laboratory Results - last 24 hr 04/24/20 04/24/20 04/24/20 Range/Units 18:35 18:39 18:39 WBC 11.97 H (4.23-9.07) K/mm3 RBC 5.53 (4.63-6.08) M/mm3 Hgb 17.9 H D (13.7-17.5) gm/dl Hct 52.4 H (40.1-51.0) % MCV 94.8 H (79.0-92.2) fl MCH 32.4 H (25.7-32.2) pg MCHC 34.2 (32.2-35.5) g/dl RDW Std Deviation 45.5 H (35.1-43.9) fL Plt Count 261 (163-337) K/mm3 MPV 11.2 (9.4-12.3) fl Neut % (Auto) 62.8 (34.0-67.9) % Lymph % (Auto) 27.7 (21.8-53.1) % [place] % (Auto) 6.4 (5.3-12.2) % Eos % (Auto) 0.5 L (0.8-7.0) Baso % (Auto) 0.4 (0.1-1.2) % Neut # (Auto) 7.51 H (1.78-5.38) K/mm3 Lymph # (Auto) 3.32 (1.32-3.57) K/mm3 [place] # (Auto) 0.77 (0.30-0.82) K/mm3 Eos # (Auto) 0.06 (0.04-0.54) K/mm3 Baso # (Auto) 0.05 (0.01-0.08) K/mm3 Manual Slide Review Puncture Site ABG pH (7.35-7.45) ABG pCO2 (35.0-45.0) mmHg ABG pO2 (80.0-100.0) mmHg ABG HCO3 (22.0-26.0) meq/L ABG O2 Saturation (96.0-97.0) % ABG Base Excess (-2-2.0) Luis Test VBG pH 7.11 L (7.30-7.40) A-a Gradient mmHg O2 Delivery Device FiO2 (21.00-100.00) % Sodium (136-145) mEq/L Potassium (3.5-5.1) mEq/L Chloride (98-107) mEq/L Carbon Dioxide (21-32) mEq/L Anion Gap (5-15) BUN (7-18) mg/dL Creatinine (0.7-1.3) mg/dL Est Cr Clr Drug Dosing mL/min Estimated GFR (MDRD) (>60) mL/min BUN/Creatinine Ratio (14-18) Glucose (74-106) mg/dL POC Glucose (70-105) mg/dL Hemoglobin A1c (4.50-6.20) % Serum Osmolality (280-300) mosm/kg Lactic Acid (0.4-2.0) mmol/L Calcium (8.5-10.1) mg/dL Phosphorus (2.6-4.7) mg/dL Magnesium (1.8-2.4) mg/dl Total Bilirubin (0.2-1.0) mg/dL AST (15-37) U/L ALT (16-63) U/L Alkaline Phosphatase (46-116) U/L Total Protein (6.4-8.2) g/dl Albumin (3.4-5.0) g/dl Globulin gm/dL Albumin/Globulin Ratio (1-2) Lipase (73-393) U/L Urine Color (Yellow) Urine Appearance (Clear) Urine pH (5.0-8.0) Ur Specific [place] (1.005-1.030) Urine Protein (Negative) Urine Glucose (UA) (Negative) Urine Ketones (Negative) Urine Occult Blood (Negative) Urine Nitrite (Negative) Urine Bilirubin (Negative) Urine Urobilinogen (0.2-1.0) Ur Leukocyte Esterase (Negative) Urine RBC (0-5) /hpf Urine WBC (0-5) /hpf Ur Squamous Epith Cells (0-5) /hpf Urine Bacteria (FEW) /hpf Urine Mucus (FEW) /hpf Urine Opiates Screen (TIWOCR=477) Ur Buprenorphine Scrn (CUTOFF=10) Ur Oxycodone Screen (BWG8UL=964) Urine Methadone Screen (BTN5NK=979) Ur Propoxyphene Screen (XMCHUF=162) Ur Barbiturates Screen (RPTMXX=014) Ur Tricyclics Screen (SGUNTF=730) Ur Phencyclidine Scrn (CUTOFF=25) Ur Amphetamine Screen (WSHKNZ=986) U Methamphetamines Scrn (SXRYZG=541) U Benzodiazepines Scrn (JJVKCJ=139) U Cocaine Metab Screen (YXOWZJ=622) U Marijuana (THC) Screen (CUTOFF=50) Ketones 7.52 (0.0-0.3) mM 04/24/20 04/24/20 04/24/20 Range/Units 18:39 18:55 20:03 WBC (4.23-9.07) K/mm3 RBC (4.63-6.08) M/mm3 Hgb (13.7-17.5) gm/dl Hct (40.1-51.0) % MCV (79.0-92.2) fl MCH (25.7-32.2) pg MCHC (32.2-35.5) g/dl RDW Std Deviation (35.1-43.9) fL Plt Count (163-337) K/mm3 MPV (9.4-12.3) fl Neut % (Auto) (34.0-67.9) % Lymph % (Auto) (21.8-53.1) % [place] % (Auto) (5.3-12.2) % Eos % (Auto) (0.8-7.0) Baso % (Auto) (0.1-1.2) % Neut # (Auto) (1.78-5.38) K/mm3 Lymph # (Auto) (1.32-3.57) K/mm3 [place] # (Auto) (0.30-0.82) K/mm3 Eos # (Auto) (0.04-0.54) K/mm3 Baso # (Auto) (0.01-0.08) K/mm3 Manual Slide Review Puncture Site ABG pH (7.35-7.45) ABG pCO2 (35.0-45.0) mmHg ABG pO2 (80.0-100.0) mmHg ABG HCO3 (22.0-26.0) meq/L ABG O2 Saturation (96.0-97.0) % ABG Base Excess (-2-2.0) Luis Test VBG pH (7.30-7.40) A-a Gradient mmHg O2 Delivery Device FiO2 (21.00-100.00) % Sodium 136 (136-145) mEq/L Potassium 5.2 H (3.5-5.1) mEq/L Chloride 102 (98-107) mEq/L Carbon Dioxide 12 L D (21-32) mEq/L Anion Gap 27.2 H (5-15) BUN 14 (7-18) mg/dL Creatinine 1.2 (0.7-1.3) mg/dL Est Cr Clr Drug Dosing 91.61 mL/min Estimated GFR (MDRD) > 60 (>60) mL/min BUN/Creatinine Ratio 11.7 L (14-18) Glucose 188 H (74-106) mg/dL POC Glucose 163 H (70-105) mg/dL Hemoglobin A1c (4.50-6.20) % Serum Osmolality 311 H (280-300) mosm/kg Lactic Acid 1.2 (0.4-2.0) mmol/L Calcium 8.6 (8.5-10.1) mg/dL Phosphorus (2.6-4.7) mg/dL Magnesium 2.5 H (1.8-2.4) mg/dl Total Bilirubin 0.8 (0.2-1.0) mg/dL AST 83 H (15-37) U/L ALT 133 H (16-63) U/L Alkaline Phosphatase 89 (46-116) U/L Total Protein 9.0 H (6.4-8.2) g/dl Albumin 4.1 (3.4-5.0) g/dl Globulin 4.9 gm/dL Albumin/Globulin Ratio 0.8 L (1-2) Lipase 138 (73-393) U/L Urine Color (Yellow) Urine Appearance (Clear) Urine pH (5.0-8.0) Ur Specific [place] (1.005-1.030) Urine Protein (Negative) Urine Glucose (UA) (Negative) Urine Ketones (Negative) Urine Occult Blood (Negative) Urine Nitrite (Negative) Urine Bilirubin (Negative) Urine Urobilinogen (0.2-1.0) Ur Leukocyte Esterase (Negative) Urine RBC (0-5) /hpf Urine WBC (0-5) /hpf Ur Squamous Epith Cells (0-5) /hpf Urine Bacteria (FEW) /hpf Urine Mucus (FEW) /hpf Urine Opiates Screen (UVLLMX=604) Ur Buprenorphine Scrn (CUTOFF=10) Ur Oxycodone Screen (IPX7TZ=185) Urine Methadone Screen (ECO4FF=178) Ur Propoxyphene Screen (BEFCBD=178) Ur Barbiturates Screen (DJXZMA=102) Ur Tricyclics Screen (NRUYXE=067) Ur Phencyclidine Scrn (CUTOFF=25) Ur Amphetamine Screen (QCFECB=479) U Methamphetamines Scrn (JXFOPT=487) U Benzodiazepines Scrn (FTMOXJ=642) U Cocaine Metab Screen (WIYSRM=292) U Marijuana (THC) Screen (CUTOFF=50) Ketones (0.0-0.3) mM 04/24/20 04/24/20 04/24/20 Range/Units 20:15 20:16 20:37 WBC (4.23-9.07) K/mm3 RBC (4.63-6.08) M/mm3 Hgb (13.7-17.5) gm/dl Hct (40.1-51.0) % MCV (79.0-92.2) fl MCH (25.7-32.2) pg MCHC (32.2-35.5) g/dl RDW Std Deviation (35.1-43.9) fL Plt Count (163-337) K/mm3 MPV (9.4-12.3) fl Neut % (Auto) (34.0-67.9) % Lymph % (Auto) (21.8-53.1) % [place] % (Auto) (5.3-12.2) % Eos % (Auto) (0.8-7.0) Baso % (Auto) (0.1-1.2) % Neut # (Auto) (1.78-5.38) K/mm3 Lymph # (Auto) (1.32-3.57) K/mm3 [place] # (Auto) (0.30-0.82) K/mm3 Eos # (Auto) (0.04-0.54) K/mm3 Baso # (Auto) (0.01-0.08) K/mm3 Manual Slide Review Puncture Site ABG pH (7.35-7.45) ABG pCO2 (35.0-45.0) mmHg ABG pO2 (80.0-100.0) mmHg ABG HCO3 (22.0-26.0) meq/L ABG O2 Saturation (96.0-97.0) % ABG Base Excess (-2-2.0) Luis Test VBG pH (7.30-7.40) A-a Gradient mmHg O2 Delivery Device FiO2 (21.00-100.00) % Sodium (136-145) mEq/L Potassium (3.5-5.1) mEq/L Chloride (98-107) mEq/L Carbon Dioxide (21-32) mEq/L Anion Gap (5-15) BUN (7-18) mg/dL Creatinine (0.7-1.3) mg/dL Est Cr Clr Drug Dosing mL/min Estimated GFR (MDRD) (>60) mL/min BUN/Creatinine Ratio (14-18) Glucose (74-106) mg/dL POC Glucose 160 H (70-105) mg/dL Hemoglobin A1c (4.50-6.20) % Serum Osmolality (280-300) mosm/kg Lactic Acid (0.4-2.0) mmol/L Calcium (8.5-10.1) mg/dL Phosphorus (2.6-4.7) mg/dL Magnesium (1.8-2.4) mg/dl Total Bilirubin (0.2-1.0) mg/dL AST (15-37) U/L ALT (16-63) U/L Alkaline Phosphatase (46-116) U/L Total Protein (6.4-8.2) g/dl Albumin (3.4-5.0) g/dl Globulin gm/dL Albumin/Globulin Ratio (1-2) Lipase (73-393) U/L Urine Color Light yellow (Yellow) Urine Appearance Clear (Clear) Urine pH 5.5 (5.0-8.0) Ur Specific [place] > or = 1.030 (1.005-1.030) Urine Protein 2+ H (Negative) Urine Glucose (UA) 2+ H (Negative) Urine Ketones 3+ H (Negative) Urine Occult Blood Trace-lysed H (Negative) Urine Nitrite Negative (Negative) Urine Bilirubin Negative (Negative) Urine Urobilinogen 0.2 (0.2-1.0) Ur Leukocyte Esterase Negative (Negative) Urine RBC 0-5 (0-5) /hpf Urine WBC 0-5 (0-5) /hpf Ur Squamous Epith Cells 0-5 (0-5) /hpf Urine Bacteria Few (FEW) /hpf Urine Mucus Moderate H (FEW) /hpf Urine Opiates Screen Negative (WBDNOE=314) Ur Buprenorphine Scrn Negative (CUTOFF=10) Ur Oxycodone Screen Negative (SRI0BK=769) Urine Methadone Screen Negative (YCO1XQ=567) Ur Propoxyphene Screen Negative (FOBTMD=222) Ur Barbiturates Screen Negative (CJIIRV=046) Ur Tricyclics Screen Negative (WLFGZU=982) Ur Phencyclidine Scrn Negative (CUTOFF=25) Ur Amphetamine Screen Negative (DDJIQG=868) U Methamphetamines Scrn Negative (CLTPKG=651) U Benzodiazepines Scrn Negative (CYNPJU=485) U Cocaine Metab Screen Negative (MOYJMH=940) U Marijuana (THC) Screen Negative (CUTOFF=50) Ketones (0.0-0.3) mM 04/24/20 04/24/20 04/24/20 Range/Units 20:40 21:53 22:40 WBC (4.23-9.07) K/mm3 RBC (4.63-6.08) M/mm3 Hgb (13.7-17.5) gm/dl Hct (40.1-51.0) % MCV (79.0-92.2) fl MCH (25.7-32.2) pg MCHC (32.2-35.5) g/dl RDW Std Deviation (35.1-43.9) fL Plt Count (163-337) K/mm3 MPV (9.4-12.3) fl Neut % (Auto) (34.0-67.9) % Lymph % (Auto) (21.8-53.1) % [place] % (Auto) (5.3-12.2) % Eos % (Auto) (0.8-7.0) Baso % (Auto) (0.1-1.2) % Neut # (Auto) (1.78-5.38) K/mm3 Lymph # (Auto) (1.32-3.57) K/mm3 [place] # (Auto) (0.30-0.82) K/mm3 Eos # (Auto) (0.04-0.54) K/mm3 Baso # (Auto) (0.01-0.08) K/mm3 Manual Slide Review Puncture Site Rt radial ABG pH 7.12 L* (7.35-7.45) ABG pCO2 21.5 L (35.0-45.0) mmHg ABG pO2 112.0 H (80.0-100.0) mmHg ABG HCO3 6.7 L (22.0-26.0) meq/L ABG O2 Saturation 96.8 (96.0-97.0) % ABG Base Excess -22.5 L (-2-2.0) Luis Test Positive VBG pH (7.30-7.40) A-a Gradient 12 mmHg O2 Delivery Device Room air FiO2 21.00 (21.00-100.00) % Sodium 137 (136-145) mEq/L Potassium 4.7 (3.5-5.1) mEq/L Chloride 104 (98-107) mEq/L Carbon Dioxide 10 L (21-32) mEq/L Anion Gap 27.7 H (5-15) BUN 12 (7-18) mg/dL Creatinine 1.1 (0.7-1.3) mg/dL Est Cr Clr Drug Dosing TNP mL/min Estimated GFR (MDRD) > 60 (>60) mL/min BUN/Creatinine Ratio 10.9 L (14-18) Glucose 192 H (74-106) mg/dL POC Glucose 156 H (70-105) mg/dL Hemoglobin A1c (4.50-6.20) % Serum Osmolality (280-300) mosm/kg Lactic Acid (0.4-2.0) mmol/L Calcium 8.2 L (8.5-10.1) mg/dL Phosphorus 3.6 (2.6-4.7) mg/dL Magnesium 2.2 (1.8-2.4) mg/dl Total Bilirubin (0.2-1.0) mg/dL AST (15-37) U/L ALT (16-63) U/L Alkaline Phosphatase (46-116) U/L Total Protein (6.4-8.2) g/dl Albumin (3.4-5.0) g/dl Globulin gm/dL Albumin/Globulin Ratio (1-2) Lipase (73-393) U/L Urine Color (Yellow) Urine Appearance (Clear) Urine pH (5.0-8.0) Ur Specific [place] (1.005-1.030) Urine Protein (Negative) Urine Glucose (UA) (Negative) Urine Ketones (Negative) Urine Occult Blood (Negative) Urine Nitrite (Negative) Urine Bilirubin (Negative) Urine Urobilinogen (0.2-1.0) Ur Leukocyte Esterase (Negative) Urine RBC (0-5) /hpf Urine WBC (0-5) /hpf Ur Squamous Epith Cells (0-5) /hpf Urine Bacteria (FEW) /hpf Urine Mucus (FEW) /hpf Urine Opiates Screen (DCVMSG=538) Ur Buprenorphine Scrn (CUTOFF=10) Ur Oxycodone Screen (MAC6SJ=924) Urine Methadone Screen (BIZ7HD=927) Ur Propoxyphene Screen (HNPQVB=717) Ur Barbiturates Screen (DCVRCJ=577) Ur Tricyclics Screen (LVOHCO=383) Ur Phencyclidine Scrn (CUTOFF=25) Ur Amphetamine Screen (WBSZUZ=638) U Methamphetamines Scrn (BCLANB=029) U Benzodiazepines Scrn (UYWYDA=506) U Cocaine Metab Screen (CREAND=118) U Marijuana (THC) Screen (CUTOFF=50) Ketones (0.0-0.3) mM 04/25/20 04/25/20 04/25/20 Range/Units 00:02 02:02 02:18 WBC (4.23-9.07) K/mm3 RBC (4.63-6.08) M/mm3 Hgb (13.7-17.5) gm/dl Hct (40.1-51.0) % MCV (79.0-92.2) fl MCH (25.7-32.2) pg MCHC (32.2-35.5) g/dl RDW Std Deviation (35.1-43.9) fL Plt Count (163-337) K/mm3 MPV (9.4-12.3) fl Neut % (Auto) (34.0-67.9) % Lymph % (Auto) (21.8-53.1) % [place] % (Auto) (5.3-12.2) % Eos % (Auto) (0.8-7.0) Baso % (Auto) (0.1-1.2) % Neut # (Auto) (1.78-5.38) K/mm3 Lymph # (Auto) (1.32-3.57) K/mm3 [place] # (Auto) (0.30-0.82) K/mm3 Eos # (Auto) (0.04-0.54) K/mm3 Baso # (Auto) (0.01-0.08) K/mm3 Manual Slide Review Puncture Site ABG pH (7.35-7.45) ABG pCO2 (35.0-45.0) mmHg ABG pO2 (80.0-100.0) mmHg ABG HCO3 (22.0-26.0) meq/L ABG O2 Saturation (96.0-97.0) % ABG Base Excess (-2-2.0) Luis Test VBG pH (7.30-7.40) A-a Gradient mmHg O2 Delivery Device FiO2 (21.00-100.00) % Sodium 135 L (136-145) mEq/L Potassium 4.6 (3.5-5.1) mEq/L Chloride 104 (98-107) mEq/L Carbon Dioxide 11 L (21-32) mEq/L Anion Gap 24.6 H (5-15) BUN 11 (7-18) mg/dL Creatinine 1.2 (0.7-1.3) mg/dL Est Cr Clr Drug Dosing TNP mL/min Estimated GFR (MDRD) > 60 (>60) mL/min BUN/Creatinine Ratio 9.2 L (14-18) Glucose 200 H (74-106) mg/dL POC Glucose 175 H 184 H (70-105) mg/dL Hemoglobin A1c (4.50-6.20) % Serum Osmolality (280-300) mosm/kg Lactic Acid (0.4-2.0) mmol/L Calcium 7.8 L (8.5-10.1) mg/dL Phosphorus 3.2 (2.6-4.7) mg/dL Magnesium 2.2 (1.8-2.4) mg/dl Total Bilirubin (0.2-1.0) mg/dL AST (15-37) U/L ALT (16-63) U/L Alkaline Phosphatase (46-116) U/L Total Protein (6.4-8.2) g/dl Albumin (3.4-5.0) g/dl Globulin gm/dL Albumin/Globulin Ratio (1-2) Lipase (73-393) U/L Urine Color (Yellow) Urine Appearance (Clear) Urine pH (5.0-8.0) Ur Specific [place] (1.005-1.030) Urine Protein (Negative) Urine Glucose (UA) (Negative) Urine Ketones (Negative) Urine Occult Blood (Negative) Urine Nitrite (Negative) Urine Bilirubin (Negative) Urine Urobilinogen (0.2-1.0) Ur Leukocyte Esterase (Negative) Urine RBC (0-5) /hpf Urine WBC (0-5) /hpf Ur Squamous Epith Cells (0-5) /hpf Urine Bacteria (FEW) /hpf Urine Mucus (FEW) /hpf Urine Opiates Screen (RNMFDF=150) Ur Buprenorphine Scrn (CUTOFF=10) Ur Oxycodone Screen (VQF6DZ=523) Urine Methadone Screen (YMR1OY=125) Ur Propoxyphene Screen (OCDCGZ=485) Ur Barbiturates Screen (RZAATT=698) Ur Tricyclics Screen (REXBOG=439) Ur Phencyclidine Scrn (CUTOFF=25) Ur Amphetamine Screen (GCMPTG=400) U Methamphetamines Scrn (CELBFP=696) U Benzodiazepines Scrn (OAFBZT=942) U Cocaine Metab Screen (IFQOGQ=500) U Marijuana (THC) Screen (CUTOFF=50) Ketones (0.0-0.3) mM 04/25/20 04/25/20 04/25/20 Range/Units 04:03 06:02 06:15 WBC 11.99 H (4.23-9.07) K/mm3 RBC 5.19 (4.63-6.08) M/mm3 Hgb 16.6 (13.7-17.5) gm/dl Hct 49.9 (40.1-51.0) % MCV 96.1 H (79.0-92.2) fl MCH 32.0 (25.7-32.2) pg MCHC 33.3 (32.2-35.5) g/dl RDW Std Deviation 46.3 H (35.1-43.9) fL Plt Count 247 (163-337) K/mm3 MPV 11.1 (9.4-12.3) fl Neut % (Auto) 57.8 (34.0-67.9) % Lymph % (Auto) 31.1 (21.8-53.1) % [place] % (Auto) 7.8 (5.3-12.2) % Eos % (Auto) 0.3 L (0.8-7.0) Baso % (Auto) 0.4 (0.1-1.2) % Neut # (Auto) 6.94 H (1.78-5.38) K/mm3 Lymph # (Auto) 3.73 H (1.32-3.57) K/mm3 [place] # (Auto) 0.93 H (0.30-0.82) K/mm3 Eos # (Auto) 0.03 L (0.04-0.54) K/mm3 Baso # (Auto) 0.05 (0.01-0.08) K/mm3 Manual Slide Review Abnormal smear Puncture Site ABG pH (7.35-7.45) ABG pCO2 (35.0-45.0) mmHg ABG pO2 (80.0-100.0) mmHg ABG HCO3 (22.0-26.0) meq/L ABG O2 Saturation (96.0-97.0) % ABG Base Excess (-2-2.0) Luis Test VBG pH (7.30-7.40) A-a Gradient mmHg O2 Delivery Device FiO2 (21.00-100.00) % Sodium (136-145) mEq/L Potassium (3.5-5.1) mEq/L Chloride (98-107) mEq/L Carbon Dioxide (21-32) mEq/L Anion Gap (5-15) BUN (7-18) mg/dL Creatinine (0.7-1.3) mg/dL Est Cr Clr Drug Dosing mL/min Estimated GFR (MDRD) (>60) mL/min BUN/Creatinine Ratio (14-18) Glucose (74-106) mg/dL POC Glucose 191 H 187 H (70-105) mg/dL Hemoglobin A1c (4.50-6.20) % Serum Osmolality (280-300) mosm/kg Lactic Acid (0.4-2.0) mmol/L Calcium (8.5-10.1) mg/dL Phosphorus (2.6-4.7) mg/dL Magnesium (1.8-2.4) mg/dl Total Bilirubin (0.2-1.0) mg/dL AST (15-37) U/L ALT (16-63) U/L Alkaline Phosphatase (46-116) U/L Total Protein (6.4-8.2) g/dl Albumin (3.4-5.0) g/dl Globulin gm/dL Albumin/Globulin Ratio (1-2) Lipase (73-393) U/L Urine Color (Yellow) Urine Appearance (Clear) Urine pH (5.0-8.0) Ur Specific [place] (1.005-1.030) Urine Protein (Negative) Urine Glucose (UA) (Negative) Urine Ketones (Negative) Urine Occult Blood (Negative) Urine Nitrite (Negative) Urine Bilirubin (Negative) Urine Urobilinogen (0.2-1.0) Ur Leukocyte Esterase (Negative) Urine RBC (0-5) /hpf Urine WBC (0-5) /hpf Ur Squamous Epith Cells (0-5) /hpf Urine Bacteria (FEW) /hpf Urine Mucus (FEW) /hpf Urine Opiates Screen (YFEEBD=378) Ur Buprenorphine Scrn (CUTOFF=10) Ur Oxycodone Screen (QPK1XX=972) Urine Methadone Screen (VSK1GJ=365) Ur Propoxyphene Screen (STSHSY=958) Ur Barbiturates Screen (CTPDUI=322) Ur Tricyclics Screen (EWXCRG=995) Ur Phencyclidine Scrn (CUTOFF=25) Ur Amphetamine Screen (WOJTLR=150) U Methamphetamines Scrn (NCOAYV=114) U Benzodiazepines Scrn (SIYTGK=944) U Cocaine Metab Screen (WDPBVY=805) U Marijuana (THC) Screen (CUTOFF=50) Ketones (0.0-0.3) mM 04/25/20 04/25/20 04/25/20 Range/Units 06:15 06:15 06:15 WBC (4.23-9.07) K/mm3 RBC (4.63-6.08) M/mm3 Hgb (13.7-17.5) gm/dl Hct (40.1-51.0) % MCV (79.0-92.2) fl MCH (25.7-32.2) pg MCHC (32.2-35.5) g/dl RDW Std Deviation (35.1-43.9) fL Plt Count (163-337) K/mm3 MPV (9.4-12.3) fl Neut % (Auto) (34.0-67.9) % Lymph % (Auto) (21.8-53.1) % [place] % (Auto) (5.3-12.2) % Eos % (Auto) (0.8-7.0) Baso % (Auto) (0.1-1.2) % Neut # (Auto) (1.78-5.38) K/mm3 Lymph # (Auto) (1.32-3.57) K/mm3 [place] # (Auto) (0.30-0.82) K/mm3 Eos # (Auto) (0.04-0.54) K/mm3 Baso # (Auto) (0.01-0.08) K/mm3 Manual Slide Review Puncture Site ABG pH (7.35-7.45) ABG pCO2 (35.0-45.0) mmHg ABG pO2 (80.0-100.0) mmHg ABG HCO3 (22.0-26.0) meq/L ABG O2 Saturation (96.0-97.0) % ABG Base Excess (-2-2.0) Luis Test VBG pH 7.15 L (7.30-7.40) A-a Gradient mmHg O2 Delivery Device FiO2 (21.00-100.00) % Sodium 136 (136-145) mEq/L Potassium 4.4 (3.5-5.1) mEq/L Chloride 104 (98-107) mEq/L Carbon Dioxide 11 L (21-32) mEq/L Anion Gap 25.4 H (5-15) BUN 9 (7-18) mg/dL Creatinine 1.2 (0.7-1.3) mg/dL Est Cr Clr Drug Dosing TNP mL/min Estimated GFR (MDRD) > 60 (>60) mL/min BUN/Creatinine Ratio 7.5 L (14-18) Glucose 210 H (74-106) mg/dL POC Glucose (70-105) mg/dL Hemoglobin A1c 9.60 H (4.50-6.20) % Serum Osmolality (280-300) mosm/kg Lactic Acid (0.4-2.0) mmol/L Calcium 7.8 L (8.5-10.1) mg/dL Phosphorus 2.8 (2.6-4.7) mg/dL Magnesium 2.2 (1.8-2.4) mg/dl Total Bilirubin (0.2-1.0) mg/dL AST (15-37) U/L ALT (16-63) U/L Alkaline Phosphatase (46-116) U/L Total Protein (6.4-8.2) g/dl Albumin (3.4-5.0) g/dl Globulin gm/dL Albumin/Globulin Ratio (1-2) Lipase (73-393) U/L Urine Color (Yellow) Urine Appearance (Clear) Urine pH (5.0-8.0) Ur Specific [place] (1.005-1.030) Urine Protein (Negative) Urine Glucose (UA) (Negative) Urine Ketones (Negative) Urine Occult Blood (Negative) Urine Nitrite (Negative) Urine Bilirubin (Negative) Urine Urobilinogen (0.2-1.0) Ur Leukocyte Esterase (Negative) Urine RBC (0-5) /hpf Urine WBC (0-5) /hpf Ur Squamous Epith Cells (0-5) /hpf Urine Bacteria (FEW) /hpf Urine Mucus (FEW) /hpf Urine Opiates Screen (UGVBTL=295) Ur Buprenorphine Scrn (CUTOFF=10) Ur Oxycodone Screen (OTH7YD=138) Urine Methadone Screen (DIE4SM=740) Ur Propoxyphene Screen (YPIOWN=349) Ur Barbiturates Screen (GBODTN=372) Ur Tricyclics Screen (WAPDMR=531) Ur Phencyclidine Scrn (CUTOFF=25) Ur Amphetamine Screen (CVMMVP=095) U Methamphetamines Scrn (HSVAQY=044) U Benzodiazepines Scrn (FBMMKP=461) U Cocaine Metab Screen (LQDJFN=741) U Marijuana (THC) Screen (CUTOFF=50) Ketones (0.0-0.3) mM 06//20 Range/Units 08:05 WBC (4.23-9.07) K/mm3 RBC (4.63-6.08) M/mm3 Hgb (13.7-17.5) gm/dl Hct (40.1-51.0) % MCV (79.0-92.2) fl MCH (25.7-32.2) pg MCHC (32.2-35.5) g/dl RDW Std Deviation (35.1-43.9) fL Plt Count (163-337) K/mm3 MPV (9.4-12.3) fl Neut % (Auto) (34.0-67.9) % Lymph % (Auto) (21.8-53.1) % [place] % (Auto) (5.3-12.2) % Eos % (Auto) (0.8-7.0) Baso % (Auto) (0.1-1.2) % Neut # (Auto) (1.78-5.38) K/mm3 Lymph # (Auto) (1.32-3.57) K/mm3 [place] # (Auto) (0.30-0.82) K/mm3 Eos # (Auto) (0.04-0.54) K/mm3 Baso # (Auto) (0.01-0.08) K/mm3 Manual Slide Review Puncture Site ABG pH (7.35-7.45) ABG pCO2 (35.0-45.0) mmHg ABG pO2 (80.0-100.0) mmHg ABG HCO3 (22.0-26.0) meq/L ABG O2 Saturation (96.0-97.0) % ABG Base Excess (-2-2.0) Luis Test VBG pH (7.30-7.40) A-a Gradient mmHg O2 Delivery Device FiO2 (21.00-100.00) % Sodium (136-145) mEq/L Potassium (3.5-5.1) mEq/L Chloride (98-107) mEq/L Carbon Dioxide (21-32) mEq/L Anion Gap (5-15) BUN (7-18) mg/dL Creatinine (0.7-1.3) mg/dL Est Cr Clr Drug Dosing mL/min Estimated GFR (MDRD) (>60) mL/min BUN/Creatinine Ratio (14-18) Glucose (74-106) mg/dL POC Glucose 196 H (70-105) mg/dL Hemoglobin A1c (4.50-6.20) % Serum Osmolality (280-300) mosm/kg Lactic Acid (0.4-2.0) mmol/L Calcium (8.5-10.1) mg/dL Phosphorus (2.6-4.7) mg/dL Magnesium (1.8-2.4) mg/dl Total Bilirubin (0.2-1.0) mg/dL AST (15-37) U/L ALT (16-63) U/L Alkaline Phosphatase (46-116) U/L Total Protein (6.4-8.2) g/dl Albumin (3.4-5.0) g/dl Globulin gm/dL Albumin/Globulin Ratio (1-2) Lipase (73-393) U/L Urine Color (Yellow) Urine Appearance (Clear) Urine pH (5.0-8.0) Ur Specific [place] (1.005-1.030) Urine Protein (Negative) Urine Glucose (UA) (Negative) Urine Ketones (Negative) Urine Occult Blood (Negative) Urine Nitrite (Negative) Urine Bilirubin (Negative) Urine Urobilinogen (0.2-1.0) Ur Leukocyte Esterase (Negative) Urine RBC (0-5) /hpf Urine WBC (0-5) /hpf Ur Squamous Epith Cells (0-5) /hpf Urine Bacteria (FEW) /hpf Urine Mucus (FEW) /hpf Urine Opiates Screen (LANDDJ=357) Ur Buprenorphine Scrn (CUTOFF=10) Ur Oxycodone Screen (VUW0NJ=021) Urine Methadone Screen (KXI1KD=276) Ur Propoxyphene Screen (PPFUTF=128) Ur Barbiturates Screen (BCDXLH=918) Ur Tricyclics Screen (TPJKGM=973) Ur Phencyclidine Scrn (CUTOFF=25) Ur Amphetamine Screen (MANTVL=689) U Methamphetamines Scrn (OIUBIG=753) U Benzodiazepines Scrn (CVXLOW=227) U Cocaine Metab Screen (TRRGCP=710) U Marijuana (THC) Screen (CUTOFF=50) Ketones (0.0-0.3) mM Med Orders - Current: Current Medications Enoxaparin Sodium (Lovenox) 40 mg SUBCUT DAILY YVROSE Last Admin: 04/25/20 08:54 Dose: 40 mg Hydromorphone HCl (Dilaudid) 0.5 mg IVPUSH Q2H PRN PRN Reason: Abdominal Pain Last Admin: 04/25/20 08:52 Dose: 0.5 mg Dextrose/Sodium Chloride (Dextrose 5%-1/2 Ns) 1,000 mls @ 200 mls/hr IV ASDIRECTED YVROSE Last Admin: 04/25/20 07:13 Dose: 200 mls/hr Insulin Human Lispro (Humalog) 0 unit SUBCUT Q2H YVROSE; Protocol Last Admin: 04/25/20 08:07 Dose: 1 unit Ondansetron HCl (Zofran) 4 mg IV Q4H PRN PRN Reason: Nausea/Vomiting Last Admin: 04/25/20 08:13 Dose: 4 mg Sodium Chloride (Saline Flush) 10 ml FLUSH ASDIRECTED PRN PRN Reason: Keep Vein Open Last Admin: 04/24/20 18:50 Dose: 10 ml Sodium Chloride (Saline Flush) 10 ml FLUSH ONETIME PRN PRN Reason: IV FLUSH Stop: 04/25/20 12:00 Last Admin: 04/25/20 10:09 Dose: 10 ml Trazodone HCl (Trazodone) 50 mg PO BEDTIME PRN PRN Reason: Insomnia Last Admin: 04/25/20 00:39 Dose: 50 mg Discontinued Medications Diatrizoate Meglum/Diatrizoate Sod (Gastrografin 37%) 120 ml PO ONETIME ONE Stop: 04/25/20 09:44 Last Admin: 06/05/20 10:09 Dose: 45 ml Sodium Chloride (Normal Saline) 1,000 mls @ 999 mls/hr IV ASDIRECTED ONE Stop: 04/24/20 19:28 Last Admin: 04/24/20 18:50 Dose: 999 mls/hr Sodium Chloride (Normal Saline) 1,000 mls @ 999 mls/hr IV ONETIME ONE Stop: 04/24/20 20:43 Last Admin: 04/24/20 20:06 Dose: 999 mls/hr Lactated Ringer's (Ringers, Lactated) 1,000 mls @ 250 mls/hr IV ASDIRECTED YVROSE Sodium Chloride (Normal Saline) 500 mls @ 999 mls/hr IV .BOLUS ONE Stop: 04/25/20 08:48 Last Admin: 04/25/20 08:27 Dose: 999 mls/hr Iopamidol (Isovue-370 (76%)) 100 ml IVPUSH ONETIME ONE Stop: 04/25/20 09:44 Last Admin: 04/25/20 10:09 Dose: 100 ml Metoclopramide HCl (Reglan) 10 mg IVPUSH ONETIME ONE Stop: 04/24/20 22:13 Last Admin: 04/24/20 22:30 Dose: 10 mg Metoclopramide HCl (Reglan) 10 mg IVPUSH ONETIME ONE Stop: 04/25/20 08:43 Last Admin: 04/25/20 08:49 Dose: 10 mg Ondansetron HCl (Zofran) 4 mg IVPUSH ONETIME ONE Stop: 04/24/20 18:30 Last Admin: 04/24/20 18:50 Dose: 4 mg - Exam Quality Assessment: No: Supplemental Oxygen General: Alert, Oriented HEENT: Pupils Equal, Mucous Membr. Moist/[place] Neck: Supple Lungs: Clear to Auscultation, Normal Respiratory Effort Cardiovascular: Regular Rhythm, No Murmurs, Tachycardia GI/Abdominal Exam: Soft, No Distention (But obese), Tender (Diffusely worse in the epigastrium. Mild), Abnormal Bowel Sounds (Decreased bowel sounds throughout but present) Extremities: Normal Inspection, Normal Range of Motion, Non-Tender, No Pedal Edema, Normal Capillary Refill Skin: Warm, Dry, Intact Neurological: No New Focal Deficit Psy/Mental Status: Alert, Normal Affect, Normal Mood Sepsis Event Note - Evaluation Sepsis Screening Result: No Definite Risk - Focused Exam Vital Signs: Vital Signs Temp Pulse Pulse Resp BP BP Pulse Ox 04/25/20 08:04 138/98 H 04/25/20 08:02 118 H 145/101 H 97 04/25/20 08:01 115 H 99 04/25/20 08:00 97.6 F 116 H 18 145/101 H 98 04/25/20 04:08 135/98 H 04/25/20 04:00 96.4 F L 15 135/98 H 98 04/25/20 00:00 98 F 16 132/80 132/80 98 04/24/20 22:18 Pulse Ox 04/25/20 08:04 04/25/20 08:02 04/25/20 08:01 04/25/20 08:00 04/25/20 04:08 04/25/20 04:00 04/25/20 00:00 04/24/20 22:18 100 Date Exam was Performed: 04/25/20 Time Exam was Performed: 11:22 - Problem List Review Problem List Initiated/Reviewed/Updated: Yes - My Orders Last 24 Hours: My Active Orders 04/24/20 22:18 Oxygen Therapy [RC] .PRN Up ad Margie [RC] ASDIRECTED VTE/DVT Education [RC] Vital Signs [RC] Q4HR Resuscitation Status Routine 04/24/20 22:30 Insulin Lispro [HumaLOG] See Protocol SUBCUT Q2H Ondansetron [Zofran] 4 mg IV Q4H PRN 04/24/20 23:22 traZODone 50 mg PO BEDTIME PRN 04/24/20 Dinner Nothing per Oral Now Diet [DIET] 04/25/20 00:01 Blood Glucose Check, Bedside [RC] Q2HR 04/25/20 08:24 Abdomen Pelvis w Cont [CT] Routine 04/25/20 08:43 HYDROmorphone [Dilaudid] 0.5 mg IVPUSH Q2H PRN 04/25/20 09:00 Enoxaparin [Lovenox] 40 mg SUBCUT DAILY 04/25/20 09:43 Sodium Chloride 0.9% [Saline Flush] 10 ml FLUSH ONETIME PRN 04/25/20 10:20 KETONES,BLOOD [CHEM] Routine 04/25/20 10:24 BASIC METABOLIC PANEL,BMP [CHEM] Q4H MAGNESIUM [CHEM] Q4H PHOSPHORUS [CHEM] Q4H - Plan Plan:: Ketoacidosis likely secondary to Jardiance Type 2 diabetes diagnosed on April 21, 2020 * Patient was recently started on Jardiance and metformin. * Blood sugars appear to be well controlled with blood sugars at 188 on presentation to the emergency department. Continue to be less than 200 while receiving D5 half-normal saline * Ketones 7.52 * Anion gap 27.2-->25.4 * Venous pH 7.15 * Hemoglobin A1c 9.6 * Likely slow response due to ketoacidosis from adverse medication effect of Jardiance. Plan * Normal saline bolus 500 mL -now * Increase D5 half-normal saline to 250 mL an hour * N.p.o. * BMP, mag, phosphate every 4 hours * Follow venous pH * Hold metformin * Stop Jardiance Abdominal pain, nausea, vomiting * Likely secondary to ketoacidosis * Likely delaying improvement in metabolic acidosis Plan * CT of the abdomen with contrast to rule out intra-abdominal process that could be contributing to metabolic acidosis. CT of the abdomen with contrast Impression: 1. Severe fatty infiltration within the liver with mild hepatomegaly. 2. Other findings believed to be nonacute. Please see full report for details. VTE prophylaxis with Lovenox CODE STATUS: Full code Disposition: Admit to ICU
--- NOTE | 2020-04-25 10:32 | CT ---
CT abdomen and pelvis Technique: Multiple axial sections were obtained from above the dome of the diaphragm inferiorly through the pubic symphysis. Intravenous and oral contrast was utilized. Comparison: Prior CT abdomen and pelvis exam of 03/11/16. Findings: Visualized lung bases show nothing acute. Severe fatty infiltration noted throughout the liver. Liver is also mildly enlarged. Spleen appears within normal limits. Adrenal glands show no nodule. Pancreas shows no discrete abnormality. Kidneys show symmetric contrast enhancement. Cyst is noted within the left kidney measuring approximately 3.0 cm in size. Possible small nonobstructing calculus within the right kidney measuring around 2 mm. Abdominal aorta shows no aneurysm. Gallbladder contains no calcified gallstones. No retroperitoneal adenopathy or mesenteric abnormalities are seen. No pelvic mass or adenopathy is seen. No free fluid is seen. Minimal diverticulosis is noted. No inflammatory change is seen to indicate diverticulitis. Appendix not visualized with certainty. Delayed images shows contrast within both distal ureters as well as within the bladder. Bone window settings were reviewed. No acute osseous finding is appreciated. Impression: 1. Severe fatty infiltration within the liver with mild hepatomegaly. 2. Other findings believed to be nonacute as noted above. Diagnostic code #3 This report was dictated in MDT
[2020-04-25] MEDS ORDERED: Insulin Lispro 100 Units/ML 3 ML Vial SUBCUT SCH (17:00)
[2020-04-26] MEDS: Insulin Lispro 100 Units/ML 3 ML Vial SUBCUT SCH ×12 (00:01→22:08)
[2020-04-26] MEDS: Dextrose 5%-0.45% NaCl 1,000 ML IV SCH ×4 (02:05→18:00)
[2020-04-26] MEDS: Ondansetron 4 MG/2 ML SDV IV PRN ×4 (03:54→22:12)
[2020-04-26] MEDS: HYDROmorphone 0.5 MG/0.5 ML Syringe IVPUSH PRN (03:57)
[2020-04-26] MEDS: Enoxaparin 40 MG/0.4 ML Syringe SUBCUT SCH (08:00)
[2020-04-26] MEDS ORDERED: Potassium Chloride 10 MEQ in Premix Bag 1 BAG IV SCH (09:00)
[2020-04-26] MEDS ORDERED: Potassium Phosphates 30 MMOLE in Sodium Chloride 0.9% 500 ML IV ONE (09:30)
--- NOTE | 2020-04-26 17:09 | PCM.PN ---
- General Info Date of Service: 04/26/20 Admission Dx/Problem (Free Text): Admission Diagnosis/Problem Admission Diagnosis/Problem Diabetic ketoacidosis without coma Subjective Update: Patient is feeling much better and having significantly less nausea as the afternoon goes on. Functional Status: Reports: Pain Controlled - Review of Systems General: Reports: No Symptoms HEENT: Reports: No Symptoms Pulmonary: Reports: No Symptoms Cardiovascular: Reports: No Symptoms Musculoskeletal: Reports: No Symptoms - Patient Data Vitals - Most Recent: Last Vital Signs Temp 97.4 F 04/26/20 16:00 Pulse 111 H 04/25/20 12:00 Resp 19 04/26/20 16:00 BP 142/98 H 04/26/20 16:00 Pulse Ox 97 04/26/20 16:00 Weight - Most Recent: 286 lb 11.2 oz I&O - Last 24 Hours: Intake & Output 04/26/20 04/26/20 04/26/20 06:59 14:59 22:59 Intake Total 2386 2875 Output Total 1225 1350 1100 Balance 1161 -1350 1775 Lab Results Last 24 Hours: Laboratory Results - last 24 hr 04/25/20 04/25/20 04/25/20 Range/Units 15:47 17:55 18:26 WBC (4.23-9.07) K/mm3 RBC (4.63-6.08) M/mm3 Hgb (13.7-17.5) gm/dl Hct (40.1-51.0) % MCV (79.0-92.2) fl MCH (25.7-32.2) pg MCHC (32.2-35.5) g/dl RDW Std Deviation (35.1-43.9) fL Plt Count (163-337) K/mm3 MPV (9.4-12.3) fl Neut % (Auto) (34.0-67.9) % Lymph % (Auto) (21.8-53.1) % [place] % (Auto) (5.3-12.2) % Eos % (Auto) (0.8-7.0) Baso % (Auto) (0.1-1.2) % Neut # (Auto) (1.78-5.38) K/mm3 Lymph # (Auto) (1.32-3.57) K/mm3 [place] # (Auto) (0.30-0.82) K/mm3 Eos # (Auto) (0.04-0.54) K/mm3 Baso # (Auto) (0.01-0.08) K/mm3 Manual Slide Review VBG pH (7.30-7.40) Sodium 137 (136-145) mEq/L Potassium 4.3 (3.5-5.1) mEq/L Chloride 106 (98-107) mEq/L Carbon Dioxide 14 L (21-32) mEq/L Anion Gap 21.3 H (5-15) BUN 8 (7-18) mg/dL Creatinine 1.2 (0.7-1.3) mg/dL Est Cr Clr Drug Dosing TNP Estimated GFR (MDRD) > 60 (>60) mL/min BUN/Creatinine Ratio 6.7 L (14-18) Glucose 210 H (74-106) mg/dL POC Glucose 206 H 203 H (70-105) mg/dL Calcium 7.9 L (8.5-10.1) mg/dL Phosphorus (2.6-4.7) mg/dL Magnesium (1.8-2.4) mg/dl Total Bilirubin (0.2-1.0) mg/dL AST (15-37) U/L ALT (16-63) U/L Alkaline Phosphatase (46-116) U/L Total Protein (6.4-8.2) g/dl Albumin (3.4-5.0) g/dl Globulin gm/dL Albumin/Globulin Ratio (1-2) Ketones (0.0-0.3) mM 04/25/20 04/25/20 04/25/20 Range/Units 20:08 21:49 22:00 WBC (4.23-9.07) K/mm3 RBC (4.63-6.08) M/mm3 Hgb (13.7-17.5) gm/dl Hct (40.1-51.0) % MCV (79.0-92.2) fl MCH (25.7-32.2) pg MCHC (32.2-35.5) g/dl RDW Std Deviation (35.1-43.9) fL Plt Count (163-337) K/mm3 MPV (9.4-12.3) fl Neut % (Auto) (34.0-67.9) % Lymph % (Auto) (21.8-53.1) % [place] % (Auto) (5.3-12.2) % Eos % (Auto) (0.8-7.0) Baso % (Auto) (0.1-1.2) % Neut # (Auto) (1.78-5.38) K/mm3 Lymph # (Auto) (1.32-3.57) K/mm3 [place] # (Auto) (0.30-0.82) K/mm3 Eos # (Auto) (0.04-0.54) K/mm3 Baso # (Auto) (0.01-0.08) K/mm3 Manual Slide Review VBG pH (7.30-7.40) Sodium 137 (136-145) mEq/L Potassium 3.7 (3.5-5.1) mEq/L Chloride 107 (98-107) mEq/L Carbon Dioxide 11 L (21-32) mEq/L Anion Gap 22.7 H (5-15) BUN 7 (7-18) mg/dL Creatinine 1.0 (0.7-1.3) mg/dL Est Cr Clr Drug Dosing TNP Estimated GFR (MDRD) > 60 (>60) mL/min BUN/Creatinine Ratio 7.0 L (14-18) Glucose 198 H (74-106) mg/dL POC Glucose 186 H 169 H (70-105) mg/dL Calcium 7.9 L (8.5-10.1) mg/dL Phosphorus (2.6-4.7) mg/dL Magnesium (1.8-2.4) mg/dl Total Bilirubin (0.2-1.0) mg/dL AST (15-37) U/L ALT (16-63) U/L Alkaline Phosphatase (46-116) U/L Total Protein (6.4-8.2) g/dl Albumin (3.4-5.0) g/dl Globulin gm/dL Albumin/Globulin Ratio (1-2) Ketones (0.0-0.3) mM 04/26/20 04/26/20 04/26/20 Range/Units 00:01 02:02 03:44 WBC (4.23-9.07) K/mm3 RBC (4.63-6.08) M/mm3 Hgb (13.7-17.5) gm/dl Hct (40.1-51.0) % MCV (79.0-92.2) fl MCH (25.7-32.2) pg MCHC (32.2-35.5) g/dl RDW Std Deviation (35.1-43.9) fL Plt Count (163-337) K/mm3 MPV (9.4-12.3) fl Neut % (Auto) (34.0-67.9) % Lymph % (Auto) (21.8-53.1) % [place] % (Auto) (5.3-12.2) % Eos % (Auto) (0.8-7.0) Baso % (Auto) (0.1-1.2) % Neut # (Auto) (1.78-5.38) K/mm3 Lymph # (Auto) (1.32-3.57) K/mm3 [place] # (Auto) (0.30-0.82) K/mm3 Eos # (Auto) (0.04-0.54) K/mm3 Baso # (Auto) (0.01-0.08) K/mm3 Manual Slide Review VBG pH (7.30-7.40) Sodium (136-145) mEq/L Potassium (3.5-5.1) mEq/L Chloride (98-107) mEq/L Carbon Dioxide (21-32) mEq/L Anion Gap (5-15) BUN (7-18) mg/dL Creatinine (0.7-1.3) mg/dL Est Cr Clr Drug Dosing Estimated GFR (MDRD) (>60) mL/min BUN/Creatinine Ratio (14-18) Glucose (74-106) mg/dL POC Glucose 170 H 174 H 179 H (70-105) mg/dL Calcium (8.5-10.1) mg/dL Phosphorus (2.6-4.7) mg/dL Magnesium (1.8-2.4) mg/dl Total Bilirubin (0.2-1.0) mg/dL AST (15-37) U/L ALT (16-63) U/L Alkaline Phosphatase (46-116) U/L Total Protein (6.4-8.2) g/dl Albumin (3.4-5.0) g/dl Globulin gm/dL Albumin/Globulin Ratio (1-2) Ketones (0.0-0.3) mM 04/26/20 04/26/20 04/26/20 Range/Units 05:05 05:05 05:05 WBC 9.13 H (4.23-9.07) K/mm3 RBC 5.01 (4.63-6.08) M/mm3 Hgb 16.1 (13.7-17.5) gm/dl Hct 47.8 (40.1-51.0) % MCV 95.4 H (79.0-92.2) fl MCH 32.1 (25.7-32.2) pg MCHC 33.7 (32.2-35.5) g/dl RDW Std Deviation 46.3 H (35.1-43.9) fL Plt Count 219 (163-337) K/mm3 MPV 11.4 (9.4-12.3) fl Neut % (Auto) 55.7 (34.0-67.9) % Lymph % (Auto) 31.4 (21.8-53.1) % [place] % (Auto) 10.4 (5.3-12.2) % Eos % (Auto) 0.9 (0.8-7.0) Baso % (Auto) 0.2 (0.1-1.2) % Neut # (Auto) 5.08 (1.78-5.38) K/mm3 Lymph # (Auto) 2.87 (1.32-3.57) K/mm3 [place] # (Auto) 0.95 H (0.30-0.82) K/mm3 Eos # (Auto) 0.08 (0.04-0.54) K/mm3 Baso # (Auto) 0.02 (0.01-0.08) K/mm3 Manual Slide Review Normal smear VBG pH (7.30-7.40) Sodium 139 (136-145) mEq/L Potassium 3.4 L (3.5-5.1) mEq/L Chloride 108 H (98-107) mEq/L Carbon Dioxide 14 L (21-32) mEq/L Anion Gap 20.4 H (5-15) BUN 6 L (7-18) mg/dL Creatinine 1.1 (0.7-1.3) mg/dL Est Cr Clr Drug Dosing TNP Estimated GFR (MDRD) > 60 (>60) mL/min BUN/Creatinine Ratio 5.5 L (14-18) Glucose 215 H (74-106) mg/dL POC Glucose (70-105) mg/dL Calcium 7.9 L (8.5-10.1) mg/dL Phosphorus 1.9 L (2.6-4.7) mg/dL Magnesium 2.2 (1.8-2.4) mg/dl Total Bilirubin 0.7 (0.2-1.0) mg/dL AST 96 H (15-37) U/L ALT 130 H (16-63) U/L Alkaline Phosphatase 72 (46-116) U/L Total Protein 7.5 (6.4-8.2) g/dl Albumin 3.4 (3.4-5.0) g/dl Globulin 4.1 gm/dL Albumin/Globulin Ratio 0.8 L (1-2) Ketones 1.7 (0.0-0.3) mM 04/26/20 04/26/20 04/26/20 Range/Units 05:05 06:03 07:56 WBC (4.23-9.07) K/mm3 RBC (4.63-6.08) M/mm3 Hgb (13.7-17.5) gm/dl Hct (40.1-51.0) % MCV (79.0-92.2) fl MCH (25.7-32.2) pg MCHC (32.2-35.5) g/dl RDW Std Deviation (35.1-43.9) fL Plt Count (163-337) K/mm3 MPV (9.4-12.3) fl Neut % (Auto) (34.0-67.9) % Lymph % (Auto) (21.8-53.1) % [place] % (Auto) (5.3-12.2) % Eos % (Auto) (0.8-7.0) Baso % (Auto) (0.1-1.2) % Neut # (Auto) (1.78-5.38) K/mm3 Lymph # (Auto) (1.32-3.57) K/mm3 [place] # (Auto) (0.30-0.82) K/mm3 Eos # (Auto) (0.04-0.54) K/mm3 Baso # (Auto) (0.01-0.08) K/mm3 Manual Slide Review VBG pH 7.24 L (7.30-7.40) Sodium (136-145) mEq/L Potassium (3.5-5.1) mEq/L Chloride (98-107) mEq/L Carbon Dioxide (21-32) mEq/L Anion Gap (5-15) BUN (7-18) mg/dL Creatinine (0.7-1.3) mg/dL Est Cr Clr Drug Dosing Estimated GFR (MDRD) (>60) mL/min BUN/Creatinine Ratio (14-18) Glucose (74-106) mg/dL POC Glucose 192 H 172 H (70-105) mg/dL Calcium (8.5-10.1) mg/dL Phosphorus (2.6-4.7) mg/dL Magnesium (1.8-2.4) mg/dl Total Bilirubin (0.2-1.0) mg/dL AST (15-37) U/L ALT (16-63) U/L Alkaline Phosphatase (46-116) U/L Total Protein (6.4-8.2) g/dl Albumin (3.4-5.0) g/dl Globulin gm/dL Albumin/Globulin Ratio (1-2) Ketones (0.0-0.3) mM 04/26/20 04/26/20 04/26/20 Range/Units 09:47 11:54 13:53 WBC (4.23-9.07) K/mm3 RBC (4.63-6.08) M/mm3 Hgb (13.7-17.5) gm/dl Hct (40.1-51.0) % MCV (79.0-92.2) fl MCH (25.7-32.2) pg MCHC (32.2-35.5) g/dl RDW Std Deviation (35.1-43.9) fL Plt Count (163-337) K/mm3 MPV (9.4-12.3) fl Neut % (Auto) (34.0-67.9) % Lymph % (Auto) (21.8-53.1) % [place] % (Auto) (5.3-12.2) % Eos % (Auto) (0.8-7.0) Baso % (Auto) (0.1-1.2) % Neut # (Auto) (1.78-5.38) K/mm3 Lymph # (Auto) (1.32-3.57) K/mm3 [place] # (Auto) (0.30-0.82) K/mm3 Eos # (Auto) (0.04-0.54) K/mm3 Baso # (Auto) (0.01-0.08) K/mm3 Manual Slide Review VBG pH (7.30-7.40) Sodium (136-145) mEq/L Potassium (3.5-5.1) mEq/L Chloride (98-107) mEq/L Carbon Dioxide (21-32) mEq/L Anion Gap (5-15) BUN (7-18) mg/dL Creatinine (0.7-1.3) mg/dL Est Cr Clr Drug Dosing Estimated GFR (MDRD) (>60) mL/min BUN/Creatinine Ratio (14-18) Glucose (74-106) mg/dL POC Glucose 189 H 194 H 196 H (70-105) mg/dL Calcium (8.5-10.1) mg/dL Phosphorus (2.6-4.7) mg/dL Magnesium (1.8-2.4) mg/dl Total Bilirubin (0.2-1.0) mg/dL AST (15-37) U/L ALT (16-63) U/L Alkaline Phosphatase (46-116) U/L Total Protein (6.4-8.2) g/dl Albumin (3.4-5.0) g/dl Globulin gm/dL Albumin/Globulin Ratio (1-2) Ketones (0.0-0.3) mM 04/26/20 04/26/20 04/26/20 Range/Units 14:00 14:00 14:06 WBC (4.23-9.07) K/mm3 RBC (4.63-6.08) M/mm3 Hgb (13.7-17.5) gm/dl Hct (40.1-51.0) % MCV (79.0-92.2) fl MCH (25.7-32.2) pg MCHC (32.2-35.5) g/dl RDW Std Deviation (35.1-43.9) fL Plt Count (163-337) K/mm3 MPV (9.4-12.3) fl Neut % (Auto) (34.0-67.9) % Lymph % (Auto) (21.8-53.1) % [place] % (Auto) (5.3-12.2) % Eos % (Auto) (0.8-7.0) Baso % (Auto) (0.1-1.2) % Neut # (Auto) (1.78-5.38) K/mm3 Lymph # (Auto) (1.32-3.57) K/mm3 [place] # (Auto) (0.30-0.82) K/mm3 Eos # (Auto) (0.04-0.54) K/mm3 Baso # (Auto) (0.01-0.08) K/mm3 Manual Slide Review VBG pH 7.28 L (7.30-7.40) Sodium 140 (136-145) mEq/L Potassium 3.7 (3.5-5.1) mEq/L Chloride 107 (98-107) mEq/L Carbon Dioxide 19 L (21-32) mEq/L Anion Gap 17.7 H (5-15) BUN 5 L (7-18) mg/dL Creatinine 1.1 (0.7-1.3) mg/dL Est Cr Clr Drug Dosing TNP Estimated GFR (MDRD) > 60 (>60) mL/min BUN/Creatinine Ratio 4.5 L (14-18) Glucose 197 H (74-106) mg/dL POC Glucose (70-105) mg/dL Calcium 8.1 L (8.5-10.1) mg/dL Phosphorus 2.3 L (2.6-4.7) mg/dL Magnesium 2.0 (1.8-2.4) mg/dl Total Bilirubin (0.2-1.0) mg/dL AST (15-37) U/L ALT (16-63) U/L Alkaline Phosphatase (46-116) U/L Total Protein (6.4-8.2) g/dl Albumin (3.4-5.0) g/dl Globulin gm/dL Albumin/Globulin Ratio (1-2) Ketones 3.45 (0.0-0.3) mM // Range/Units 15:53 WBC (4.23-9.07) K/mm3 RBC (4.63-6.08) M/mm3 Hgb (13.7-17.5) gm/dl Hct (40.1-51.0) % MCV (79.0-92.2) fl MCH (25.7-32.2) pg MCHC (32.2-35.5) g/dl RDW Std Deviation (35.1-43.9) fL Plt Count (163-337) K/mm3 MPV (9.4-12.3) fl Neut % (Auto) (34.0-67.9) % Lymph % (Auto) (21.8-53.1) % [place] % (Auto) (5.3-12.2) % Eos % (Auto) (0.8-7.0) Baso % (Auto) (0.1-1.2) % Neut # (Auto) (1.78-5.38) K/mm3 Lymph # (Auto) (1.32-3.57) K/mm3 [place] # (Auto) (0.30-0.82) K/mm3 Eos # (Auto) (0.04-0.54) K/mm3 Baso # (Auto) (0.01-0.08) K/mm3 Manual Slide Review VBG pH (7.30-7.40) Sodium (136-145) mEq/L Potassium (3.5-5.1) mEq/L Chloride (98-107) mEq/L Carbon Dioxide (21-32) mEq/L Anion Gap (5-15) BUN (7-18) mg/dL Creatinine (0.7-1.3) mg/dL Est Cr Clr Drug Dosing Estimated GFR (MDRD) (>60) mL/min BUN/Creatinine Ratio (14-18) Glucose (74-106) mg/dL POC Glucose 216 H (70-105) mg/dL Calcium (8.5-10.1) mg/dL Phosphorus (2.6-4.7) mg/dL Magnesium (1.8-2.4) mg/dl Total Bilirubin (0.2-1.0) mg/dL AST (15-37) U/L ALT (16-63) U/L Alkaline Phosphatase (46-116) U/L Total Protein (6.4-8.2) g/dl Albumin (3.4-5.0) g/dl Globulin gm/dL Albumin/Globulin Ratio (1-2) Ketones (0.0-0.3) mM Med Orders - Current: Current Medications Enoxaparin Sodium (Lovenox) 40 mg SUBCUT DAILY [facility] Last Admin: 04/26/20 08:00 Dose: 40 mg Hydromorphone HCl (Dilaudid) 0.5 mg IVPUSH Q2H PRN PRN Reason: Abdominal Pain Last Admin: 04/26/20 03:57 Dose: 0.5 mg Dextrose/Sodium Chloride (Dextrose 5%-1/2 Ns) 1,000 mls @ 200 mls/hr IV ASDIRECTED [facility]VROSE Last Admin: 04/26/20 12:58 Dose: 200 mls/hr Insulin Human Lispro (Humalog) 0 unit SUBCUT Q2H [facility]; Protocol Last Admin: 04/26/20 15:59 Dose: 4 units Ondansetron HCl (Zofran) 4 mg IV Q4H PRN PRN Reason: Nausea/Vomiting Last Admin: 04/26/20 14:29 Dose: 4 mg Sodium Chloride (Saline Flush) 10 ml FLUSH ASDIRECTED PRN PRN Reason: Keep Vein Open Last Admin: 04/24/20 18:50 Dose: 10 ml Trazodone HCl (Trazodone) 50 mg PO BEDTIME PRN PRN Reason: Insomnia Last Admin: 04/25/20 00:39 Dose: 50 mg Discontinued Medications Diatrizoate Meglum/Diatrizoate Sod (Gastrografin 37%) 120 ml PO ONETIME ONE Stop: 04/25/20 09:44 Last Admin: 04/25/20 10:09 Dose: 45 ml Sodium Chloride (Normal Saline) 1,000 mls @ 999 mls/hr IV ASDIRECTED ONE Stop: 04/24/20 19:28 Last Admin: 04/24/20 18:50 Dose: 999 mls/hr Sodium Chloride (Normal Saline) 1,000 mls @ 999 mls/hr IV ONETIME ONE Stop: 04/24/20 20:43 Last Admin: 04/24/20 20:06 Dose: 999 mls/hr Lactated Ringer's (Ringers, Lactated) 1,000 mls @ 250 mls/hr IV ASDIRECTED YVROSE Sodium Chloride (Normal Saline) 500 mls @ 999 mls/hr IV .BOLUS ONE Stop: 04/25/20 08:48 Last Admin: 04/25/20 08:27 Dose: 999 mls/hr Potassium Chloride 10 meq/ (Premix) 100 mls @ 100 mls/hr IV Q1H [facility] Stop: 04/26/20 12:59 Potassium Phosphate 30 mmole/ (Sodium Chloride) 510 mls @ 102 mls/hr IV ONETIME ONE Stop: 04/26/20 14:29 Last Admin: 04/26/20 09:18 Dose: 102 mls/hr Insulin Human Lispro (Humalog) 0 unit SUBCUT Q2H [facility]; Protocol Last Admin: 04/25/20 13:52 Dose: 2 unit Insulin Human Lispro (Humalog) 0 unit SUBCUT QIDACANDBED [facility]; Protocol Iopamidol (Isovue-370 (76%)) 100 ml IVPUSH ONETIME ONE Stop: 04/25/20 09:44 Last Admin: 04/25/20 10:09 Dose: 100 ml Metoclopramide HCl (Reglan) 10 mg IVPUSH ONETIME ONE Stop: 04/24/20 22:13 Last Admin: 04/24/20 22:30 Dose: 10 mg Metoclopramide HCl (Reglan) 10 mg IVPUSH ONETIME ONE Stop: 04/25/20 08:43 Last Admin: 04/25/20 08:49 Dose: 10 mg Ondansetron HCl (Zofran) 4 mg IVPUSH ONETIME ONE Stop: 04/24/20 18:30 Last Admin: 04/24/20 18:50 Dose: 4 mg Sodium Chloride (Saline Flush) 10 ml FLUSH ONETIME PRN PRN Reason: IV FLUSH Stop: 04/25/20 12:00 Last Admin: 04/25/20 10:09 Dose: 10 ml - Exam Quality Assessment: No: Supplemental Oxygen General: Alert, Oriented HEENT: Pupils Equal, Mucous Membr. Moist/[place] Neck: Supple Lungs: Clear to Auscultation, Normal Respiratory Effort Cardiovascular: Regular Rate, Regular Rhythm GI/Abdominal Exam: Normal Bowel Sounds, Soft, Non-Tender, No Organomegaly, No Distention, No Abnormal Bruit, No Mass Extremities: Normal Inspection, Normal Range of Motion, Non-Tender, No Pedal Edema, Normal Capillary Refill Skin: Warm, Dry, Intact Psy/Mental Status: Alert, Normal Affect, Normal Mood Sepsis Event Note - Evaluation Sepsis Screening Result: No Definite Risk - Focused Exam Vital Signs: Vital Signs Temp Resp BP Pulse Ox 04/26/20 16:00 97.4 F 19 142/98 H 97 04/26/20 11:56 97.5 F 19 137/99 H 97 04/26/20 08:00 98.1 F 19 138/86 97 Date Exam was Performed: 04/26/20 Time Exam was Performed: 17:05 - Problem List Review Problem List Initiated/Reviewed/Updated: Yes - My Orders Last 24 Hours: My Active Orders 04/26/20 20:00 BASIC METABOLIC PANEL,BMP [CHEM] Routine KETONES,BLOOD [CHEM] Routine PH,VENOUS [BG] Routine - Plan Plan:: Ketoacidosis likely secondary to Jardiance Type 2 diabetes diagnosed on April 21, 2020 * Patient was recently started on Jardiance and metformin. * Blood sugars appear to be well controlled with blood sugars at 188 on presentation to the emergency department. Continue to be less than 200 while receiving D5 half-normal saline * Ketones 7.52-->1.5-->3.45 * Anion gap 27.2-->25.4-->17 * Venous pH 7.15-->7.28 * Hemoglobin A1c 9.6 * Likely slow response due to ketoacidosis from adverse medication effect of Jardiance. Plan * D5 half-normal saline to 200 mL an hour * Fingerstick blood sugar every 2 hours until anion gap closes * Sliding scale insulin every 2 hours * N.p.o. * BMP, mag, phosphate every 4 hours * Follow venous pH * Hold metformin * Stop Jardiance * When patient's anion gap closes and ketones are below 5 we will start patient on diabetic diet. Abdominal pain, nausea, vomiting -improving * Likely secondary to ketoacidosis * Likely delaying improvement in metabolic acidosis Plan * CT of the abdomen with contrast to rule out intra-abdominal process that could be contributing to metabolic acidosis. CT of the abdomen with contrast Impression: 1. Severe fatty infiltration within the liver with mild hepatomegaly. 2. Other findings believed to be nonacute. Please see full report for details. VTE prophylaxis with Lovenox CODE STATUS: Full code Disposition: Admit to ICU
[2020-04-27] MEDS: Insulin Lispro 100 Units/ML 3 ML Vial SUBCUT SCH ×12 (00:20→22:03)
[2020-04-27] MEDS: Ondansetron 4 MG/2 ML SDV IV PRN (07:44)
[2020-04-27] MEDS: D5 1/2 NS w/ 20 mEq/L KCl 1,000 ML IV SCH ×3 (07:49→21:39)
[2020-04-27] MEDS ORDERED: Potassium Phosphates 30 MMOLE in Sodium Chloride 0.9% 500 ML IV ONE (08:30)
--- NOTE | 2020-04-27 09:38 | US ---
Limited abdominal ultrasound: Multiple real-time images of the upper right abdomen were obtained. Comparison: Previous CT abdomen and pelvis exam of 04/25/20. Technologist's note: Technically difficult exam due to body habitus Liver is very echogenic compatible with prominent fatty infiltration which correlates with CT exam. Gallbladder contains no shadowing gallstones. Common bile duct measures at the upper limits of normal at 6.8 mm. Right kidney shows no hydronephrosis or mass. Right kidney shows a small stone within the mid to lower pole measuring approximately 4 mm. Right kidney length is 13.2 cm. Pancreas that is visualized appears within normal limits. Minimal amount of free fluid within the right upper abdomen is noted inferior vena cava is patent. Portal vein shows hepatopedal flow. Impression: 1. Gallbladder shows no gallstones. Common bile duct measures at the upper limits of normal at 6.8 mm. 2. Small nonobstructing stone within the mid to lower right kidney. 3. Small amount of free fluid within the right upper abdomen of questionable significance. 4. Very echogenic liver compatible with fatty infiltration. Diagnostic code #3 This report was dictated in MDT
[2020-04-27] MEDS: Enoxaparin 40 MG/0.4 ML Syringe SUBCUT SCH (09:44)
--- NOTE | 2020-04-27 09:55 | PCM.PN ---
- General Info Date of Service: 04/27/20 Admission Dx/Problem (Free Text): Admission Diagnosis/Problem Admission Diagnosis/Problem Diabetic ketoacidosis without coma Subjective Update: Trial of p.o. intake of pudding and applesauce caused some nausea last night. Anion gap closed to 17.8, IV fluids were held overnight, and anion gap increased this morning. Patient states he continues to feel fullness and pressure at the epigastrium. - Review of Systems General: Reports: No Symptoms HEENT: Reports: No Symptoms Pulmonary: Reports: No Symptoms Cardiovascular: Reports: No Symptoms Gastrointestinal: Reports: Abdominal Pain, Nausea Musculoskeletal: Reports: No Symptoms - Patient Data Vitals - Most Recent: Last Vital Signs Temp 97.6 F 04/27/20 04:00 Pulse 102 H 04/27/20 07:36 Resp 18 04/27/20 07:36 BP 135/98 H 04/27/20 07:36 Pulse Ox 97 04/27/20 07:36 Weight - Most Recent: 288 lb 1.6 oz I&O - Last 24 Hours: Intake & Output 04/26/20 04/27/20 04/27/20 22:59 06:59 14:59 Intake Total 2875 1343 Output Total 1100 700 Balance 1775 643 Lab Results Last 24 Hours: Laboratory Results - last 24 hr 04/26/20 04/26/20 04/26/20 Range/Units 07:56 09:47 11:54 WBC (4.23-9.07) K/mm3 RBC (4.63-6.08) M/mm3 Hgb (13.7-17.5) gm/dl Hct (40.1-51.0) % MCV (79.0-92.2) fl MCH (25.7-32.2) pg MCHC (32.2-35.5) g/dl RDW Std Deviation (35.1-43.9) fL Plt Count (163-337) K/mm3 MPV (9.4-12.3) fl Neut % (Auto) (34.0-67.9) % Lymph % (Auto) (21.8-53.1) % [place] % (Auto) (5.3-12.2) % Eos % (Auto) (0.8-7.0) Baso % (Auto) (0.1-1.2) % Neut # (Auto) (1.78-5.38) K/mm3 Lymph # (Auto) (1.32-3.57) K/mm3 [place] # (Auto) (0.30-0.82) K/mm3 Eos # (Auto) (0.04-0.54) K/mm3 Baso # (Auto) (0.01-0.08) K/mm3 VBG pH (7.30-7.40) Sodium (136-145) mEq/L Potassium (3.5-5.1) mEq/L Chloride (98-107) mEq/L Carbon Dioxide (21-32) mEq/L Anion Gap (5-15) BUN (7-18) mg/dL Creatinine (0.7-1.3) mg/dL Est Cr Clr Drug Dosing Estimated GFR (MDRD) (>60) mL/min BUN/Creatinine Ratio (14-18) Glucose (74-106) mg/dL POC Glucose 172 H 189 H 194 H (70-105) mg/dL Calcium (8.5-10.1) mg/dL Phosphorus (2.6-4.7) mg/dL Magnesium (1.8-2.4) mg/dl Total Bilirubin (0.2-1.0) mg/dL AST (15-37) U/L ALT (16-63) U/L Alkaline Phosphatase (46-116) U/L Total Protein (6.4-8.2) g/dl Albumin (3.4-5.0) g/dl Globulin gm/dL Albumin/Globulin Ratio (1-2) Ketones (0.0-0.3) mM 04/26/20 04/26/20 04/26/20 Range/Units 13:53 14:00 14:00 WBC (4.23-9.07) K/mm3 RBC (4.63-6.08) M/mm3 Hgb (13.7-17.5) gm/dl Hct (40.1-51.0) % MCV (79.0-92.2) fl MCH (25.7-32.2) pg MCHC (32.2-35.5) g/dl RDW Std Deviation (35.1-43.9) fL Plt Count (163-337) K/mm3 MPV (9.4-12.3) fl Neut % (Auto) (34.0-67.9) % Lymph % (Auto) (21.8-53.1) % [place] % (Auto) (5.3-12.2) % Eos % (Auto) (0.8-7.0) Baso % (Auto) (0.1-1.2) % Neut # (Auto) (1.78-5.38) K/mm3 Lymph # (Auto) (1.32-3.57) K/mm3 [place] # (Auto) (0.30-0.82) K/mm3 Eos # (Auto) (0.04-0.54) K/mm3 Baso # (Auto) (0.01-0.08) K/mm3 VBG pH (7.30-7.40) Sodium 140 (136-145) mEq/L Potassium 3.7 (3.5-5.1) mEq/L Chloride 107 (98-107) mEq/L Carbon Dioxide 19 L (21-32) mEq/L Anion Gap 17.7 H (5-15) BUN 5 L (7-18) mg/dL Creatinine 1.1 (0.7-1.3) mg/dL Est Cr Clr Drug Dosing TNP Estimated GFR (MDRD) > 60 (>60) mL/min BUN/Creatinine Ratio 4.5 L (14-18) Glucose 197 H (74-106) mg/dL POC Glucose 196 H (70-105) mg/dL Calcium 8.1 L (8.5-10.1) mg/dL Phosphorus 2.3 L (2.6-4.7) mg/dL Magnesium 2.0 (1.8-2.4) mg/dl Total Bilirubin (0.2-1.0) mg/dL AST (15-37) U/L ALT (16-63) U/L Alkaline Phosphatase (46-116) U/L Total Protein (6.4-8.2) g/dl Albumin (3.4-5.0) g/dl Globulin gm/dL Albumin/Globulin Ratio (1-2) Ketones 3.45 (0.0-0.3) mM 04/26/20 04/26/20 04/26/20 Range/Units 14:06 15:53 17:56 WBC (4.23-9.07) K/mm3 RBC (4.63-6.08) M/mm3 Hgb (13.7-17.5) gm/dl Hct (40.1-51.0) % MCV (79.0-92.2) fl MCH (25.7-32.2) pg MCHC (32.2-35.5) g/dl RDW Std Deviation (35.1-43.9) fL Plt Count (163-337) K/mm3 MPV (9.4-12.3) fl Neut % (Auto) (34.0-67.9) % Lymph % (Auto) (21.8-53.1) % [place] % (Auto) (5.3-12.2) % Eos % (Auto) (0.8-7.0) Baso % (Auto) (0.1-1.2) % Neut # (Auto) (1.78-5.38) K/mm3 Lymph # (Auto) (1.32-3.57) K/mm3 [place] # (Auto) (0.30-0.82) K/mm3 Eos # (Auto) (0.04-0.54) K/mm3 Baso # (Auto) (0.01-0.08) K/mm3 VBG pH 7.28 L (7.30-7.40) Sodium (136-145) mEq/L Potassium (3.5-5.1) mEq/L Chloride (98-107) mEq/L Carbon Dioxide (21-32) mEq/L Anion Gap (5-15) BUN (7-18) mg/dL Creatinine (0.7-1.3) mg/dL Est Cr Clr Drug Dosing Estimated GFR (MDRD) (>60) mL/min BUN/Creatinine Ratio (14-18) Glucose (74-106) mg/dL POC Glucose 216 H 208 H (70-105) mg/dL Calcium (8.5-10.1) mg/dL Phosphorus (2.6-4.7) mg/dL Magnesium (1.8-2.4) mg/dl Total Bilirubin (0.2-1.0) mg/dL AST (15-37) U/L ALT (16-63) U/L Alkaline Phosphatase (46-116) U/L Total Protein (6.4-8.2) g/dl Albumin (3.4-5.0) g/dl Globulin gm/dL Albumin/Globulin Ratio (1-2) Ketones (0.0-0.3) mM 04/26/20 04/26/20 04/26/20 Range/Units 19:57 20:00 20:00 WBC (4.23-9.07) K/mm3 RBC (4.63-6.08) M/mm3 Hgb (13.7-17.5) gm/dl Hct (40.1-51.0) % MCV (79.0-92.2) fl MCH (25.7-32.2) pg MCHC (32.2-35.5) g/dl RDW Std Deviation (35.1-43.9) fL Plt Count (163-337) K/mm3 MPV (9.4-12.3) fl Neut % (Auto) (34.0-67.9) % Lymph % (Auto) (21.8-53.1) % [place] % (Auto) (5.3-12.2) % Eos % (Auto) (0.8-7.0) Baso % (Auto) (0.1-1.2) % Neut # (Auto) (1.78-5.38) K/mm3 Lymph # (Auto) (1.32-3.57) K/mm3 [place] # (Auto) (0.30-0.82) K/mm3 Eos # (Auto) (0.04-0.54) K/mm3 Baso # (Auto) (0.01-0.08) K/mm3 VBG pH 7.30 (7.30-7.40) Sodium 140 (136-145) mEq/L Potassium 3.8 (3.5-5.1) mEq/L Chloride 108 H (98-107) mEq/L Carbon Dioxide 18 L (21-32) mEq/L Anion Gap 17.8 H (5-15) BUN 5 L (7-18) mg/dL Creatinine 1.1 (0.7-1.3) mg/dL Est Cr Clr Drug Dosing TNP Estimated GFR (MDRD) > 60 (>60) mL/min BUN/Creatinine Ratio 4.5 L (14-18) Glucose 201 H (74-106) mg/dL POC Glucose (70-105) mg/dL Calcium 8.1 L (8.5-10.1) mg/dL Phosphorus (2.6-4.7) mg/dL Magnesium (1.8-2.4) mg/dl Total Bilirubin (0.2-1.0) mg/dL AST (15-37) U/L ALT (16-63) U/L Alkaline Phosphatase (46-116) U/L Total Protein (6.4-8.2) g/dl Albumin (3.4-5.0) g/dl Globulin gm/dL Albumin/Globulin Ratio (1-2) Ketones 3.53 (0.0-0.3) mM 04/26/20 04/26/20 04/27/20 Range/Units 20:01 22:06 05:00 WBC 8.82 (4.23-9.07) K/mm3 RBC 5.06 (4.63-6.08) M/mm3 Hgb 16.4 (13.7-17.5) gm/dl Hct 48.1 (40.1-51.0) % MCV 95.1 H (79.0-92.2) fl MCH 32.4 H (25.7-32.2) pg MCHC 34.1 (32.2-35.5) g/dl RDW Std Deviation 45.7 H (35.1-43.9) fL Plt Count 210 (163-337) K/mm3 MPV 11.5 (9.4-12.3) fl Neut % (Auto) 60.4 (34.0-67.9) % Lymph % (Auto) 28.6 (21.8-53.1) % [place] % (Auto) 9.6 (5.3-12.2) % Eos % (Auto) 0.6 L (0.8-7.0) Baso % (Auto) 0.2 (0.1-1.2) % Neut # (Auto) 5.33 (1.78-5.38) K/mm3 Lymph # (Auto) 2.52 (1.32-3.57) K/mm3 [place] # (Auto) 0.85 H (0.30-0.82) K/mm3 Eos # (Auto) 0.05 (0.04-0.54) K/mm3 Baso # (Auto) 0.02 (0.01-0.08) K/mm3 VBG pH (7.30-7.40) Sodium (136-145) mEq/L Potassium (3.5-5.1) mEq/L Chloride (98-107) mEq/L Carbon Dioxide (21-32) mEq/L Anion Gap (5-15) BUN (7-18) mg/dL Creatinine (0.7-1.3) mg/dL Est Cr Clr Drug Dosing Estimated GFR (MDRD) (>60) mL/min BUN/Creatinine Ratio (14-18) Glucose (74-106) mg/dL POC Glucose 178 H 206 H (70-105) mg/dL Calcium (8.5-10.1) mg/dL Phosphorus (2.6-4.7) mg/dL Magnesium (1.8-2.4) mg/dl Total Bilirubin (0.2-1.0) mg/dL AST (15-37) U/L ALT (16-63) U/L Alkaline Phosphatase (46-116) U/L Total Protein (6.4-8.2) g/dl Albumin (3.4-5.0) g/dl Globulin gm/dL Albumin/Globulin Ratio (1-2) Ketones (0.0-0.3) mM 04/27/20 04/27/20 04/27/20 Range/Units 05:00 06:52 07:54 WBC (4.23-9.07) K/mm3 RBC (4.63-6.08) M/mm3 Hgb (13.7-17.5) gm/dl Hct (40.1-51.0) % MCV (79.0-92.2) fl MCH (25.7-32.2) pg MCHC (32.2-35.5) g/dl RDW Std Deviation (35.1-43.9) fL Plt Count (163-337) K/mm3 MPV (9.4-12.3) fl Neut % (Auto) (34.0-67.9) % Lymph % (Auto) (21.8-53.1) % [place] % (Auto) (5.3-12.2) % Eos % (Auto) (0.8-7.0) Baso % (Auto) (0.1-1.2) % Neut # (Auto) (1.78-5.38) K/mm3 Lymph # (Auto) (1.32-3.57) K/mm3 [place] # (Auto) (0.30-0.82) K/mm3 Eos # (Auto) (0.04-0.54) K/mm3 Baso # (Auto) (0.01-0.08) K/mm3 VBG pH (7.30-7.40) Sodium 142 (136-145) mEq/L Potassium 3.2 L (3.5-5.1) mEq/L Chloride 108 H (98-107) mEq/L Carbon Dioxide 17 L (21-32) mEq/L Anion Gap 20.2 H (5-15) BUN 5 L (7-18) mg/dL Creatinine 1.0 (0.7-1.3) mg/dL Est Cr Clr Drug Dosing TNP Estimated GFR (MDRD) > 60 (>60) mL/min BUN/Creatinine Ratio 5.0 L (14-18) Glucose 171 H (74-106) mg/dL POC Glucose 164 H 156 H (70-105) mg/dL Calcium 7.8 L (8.5-10.1) mg/dL Phosphorus 2.2 L (2.6-4.7) mg/dL Magnesium 2.0 (1.8-2.4) mg/dl Total Bilirubin 0.9 (0.2-1.0) mg/dL AST 76 H (15-37) U/L ALT 134 H (16-63) U/L Alkaline Phosphatase 69 (46-116) U/L Total Protein 7.5 (6.4-8.2) g/dl Albumin 3.3 L (3.4-5.0) g/dl Globulin 4.2 gm/dL Albumin/Globulin Ratio 0.8 L (1-2) Ketones (0.0-0.3) mM //20 Range/Units 09:47 WBC (4.23-9.07) K/mm3 RBC (4.63-6.08) M/mm3 Hgb (13.7-17.5) gm/dl Hct (40.1-51.0) % MCV (79.0-92.2) fl MCH (25.7-32.2) pg MCHC (32.2-35.5) g/dl RDW Std Deviation (35.1-43.9) fL Plt Count (163-337) K/mm3 MPV (9.4-12.3) fl Neut % (Auto) (34.0-67.9) % Lymph % (Auto) (21.8-53.1) % [place] % (Auto) (5.3-12.2) % Eos % (Auto) (0.8-7.0) Baso % (Auto) (0.1-1.2) % Neut # (Auto) (1.78-5.38) K/mm3 Lymph # (Auto) (1.32-3.57) K/mm3 [place] # (Auto) (0.30-0.82) K/mm3 Eos # (Auto) (0.04-0.54) K/mm3 Baso # (Auto) (0.01-0.08) K/mm3 VBG pH (7.30-7.40) Sodium (136-145) mEq/L Potassium (3.5-5.1) mEq/L Chloride (98-107) mEq/L Carbon Dioxide (21-32) mEq/L Anion Gap (5-15) BUN (7-18) mg/dL Creatinine (0.7-1.3) mg/dL Est Cr Clr Drug Dosing Estimated GFR (MDRD) (>60) mL/min BUN/Creatinine Ratio (14-18) Glucose (74-106) mg/dL POC Glucose 223 H (70-105) mg/dL Calcium (8.5-10.1) mg/dL Phosphorus (2.6-4.7) mg/dL Magnesium (1.8-2.4) mg/dl Total Bilirubin (0.2-1.0) mg/dL AST (15-37) U/L ALT (16-63) U/L Alkaline Phosphatase (46-116) U/L Total Protein (6.4-8.2) g/dl Albumin (3.4-5.0) g/dl Globulin gm/dL Albumin/Globulin Ratio (1-2) Ketones (0.0-0.3) mM Med Orders - Current: Current Medications Enoxaparin Sodium (Lovenox) 40 mg SUBCUT DAILY [facility] Last Admin: 04/27/20 09:44 Dose: 40 mg Hydromorphone HCl (Dilaudid) 0.5 mg IVPUSH Q2H PRN PRN Reason: Abdominal Pain Last Admin: 04/26/20 03:57 Dose: 0.5 mg Potassium Chloride/Dextrose/Sod Cl (D5 1/2 Ns W/ 20 Meq/L Kcl) 1,000 mls @ 200 mls/hr IV ASDIRECTED YRVOSE Last Admin: 04/27/20 07:49 Dose: 200 mls/hr Potassium Phosphate 30 mmole/ (Sodium Chloride) 510 mls @ 102 mls/hr IV ONETIME ONE Stop: 04/27/20 13:29 Last Admin: 04/27/20 08:38 Dose: 102 mls/hr Insulin Human Lispro (Humalog) 0 unit SUBCUT Q2H [facility]; Protocol Last Admin: 04/27/20 09:47 Dose: 4 units Ondansetron HCl (Zofran) 4 mg IV Q4H PRN PRN Reason: Nausea/Vomiting Last Admin: 04/27/20 07:44 Dose: 4 mg Sodium Chloride (Saline Flush) 10 ml FLUSH ASDIRECTED PRN PRN Reason: Keep Vein Open Last Admin: 04/24/20 18:50 Dose: 10 ml Trazodone HCl (Trazodone) 50 mg PO BEDTIME PRN PRN Reason: Insomnia Last Admin: 04/25/20 00:39 Dose: 50 mg Discontinued Medications Diatrizoate Meglum/Diatrizoate Sod (Gastrografin 37%) 120 ml PO ONETIME ONE Stop: 04/25/20 09:44 Last Admin: 04/25/20 10:09 Dose: 45 ml Sodium Chloride (Normal Saline) 1,000 mls @ 999 mls/hr IV ASDIRECTED ONE Stop: 04/24/20 19:28 Last Admin: 04/24/20 18:50 Dose: 999 mls/hr Sodium Chloride (Normal Saline) 1,000 mls @ 999 mls/hr IV ONETIME ONE Stop: 04/24/20 20:43 Last Admin: 04/24/20 20:06 Dose: 999 mls/hr Lactated Ringer's (Ringers, Lactated) 1,000 mls @ 250 mls/hr IV ASDIRECTED [facility] Dextrose/Sodium Chloride (Dextrose 5%-1/2 Ns) 1,000 mls @ 200 mls/hr IV ASDIRECTED [facility] Last Admin: 04/26/20 18:00 Dose: 200 mls/hr Sodium Chloride (Normal Saline) 500 mls @ 999 mls/hr IV .BOLUS ONE Stop: 04/25/20 08:48 Last Admin: 04/25/20 08:27 Dose: 999 mls/hr Potassium Chloride 10 meq/ (Premix) 100 mls @ 100 mls/hr IV Q1H [facility] Stop: 04/26/20 12:59 Potassium Phosphate 30 mmole/ (Sodium Chloride) 510 mls @ 102 mls/hr IV ONETIME ONE Stop: 04/26/20 14:29 Last Admin: 04/26/20 09:18 Dose: 102 mls/hr Insulin Human Lispro (Humalog) 0 unit SUBCUT Q2H [facility]; Protocol Last Admin: 04/25/20 13:52 Dose: 2 unit Insulin Human Lispro (Humalog) 0 unit SUBCUT QIDACANDBED [facility]; Protocol Iopamidol (Isovue-370 (76%)) 100 ml IVPUSH ONETIME ONE Stop: 04/25/20 09:44 Last Admin: 04/25/20 10:09 Dose: 100 ml Metoclopramide HCl (Reglan) 10 mg IVPUSH ONETIME ONE Stop: 04/24/20 22:13 Last Admin: 04/24/20 22:30 Dose: 10 mg Metoclopramide HCl (Reglan) 10 mg IVPUSH ONETIME ONE Stop: 04/25/20 08:43 Last Admin: 04/25/20 08:49 Dose: 10 mg Ondansetron HCl (Zofran) 4 mg IVPUSH ONETIME ONE Stop: 04/24/20 18:30 Last Admin: 04/24/20 18:50 Dose: 4 mg Sodium Chloride (Saline Flush) 10 ml FLUSH ONETIME PRN PRN Reason: IV FLUSH Stop: 04/25/20 12:00 Last Admin: 04/25/20 10:09 Dose: 10 ml - Exam General: Alert, Oriented HEENT: Pupils Equal, Mucous Membr. Moist/[place] Neck: Supple Lungs: Clear to Auscultation, Normal Respiratory Effort Cardiovascular: Regular Rate, Regular Rhythm GI/Abdominal Exam: Normal Bowel Sounds, Soft, Tender (Mild epigastric tenderness without guarding or rebound) Extremities: Normal Inspection, Normal Range of Motion, Non-Tender, No Pedal Edema, Normal Capillary Refill Skin: Warm, Dry, Intact Psy/Mental Status: Alert, Normal Affect, Normal Mood Sepsis Event Note - Evaluation Sepsis Screening Result: No Definite Risk - Focused Exam Vital Signs: Vital Signs Temp Pulse Resp BP BP Pulse Ox 04/27/20 07:36 102 H 18 135/98 H 97 04/27/20 07:28 135/98 H 04/27/20 04:00 97.6 F 17 147/108 H 98 04/27/20 03:59 147/108 H 04/26/20 23:52 97.9 F 16 131/89 98 Date Exam was Performed: 04/27/20 Time Exam was Performed: 10:42 - Problem List Review Problem List Initiated/Reviewed/Updated: Yes - My Orders Last 24 Hours: My Active Orders 04/27/20 07:45 D5 1/2 NS w/ 20 mEq/L KCl 1,000 ml IV ASDIRECTED 04/27/20 08:30 Potassium Phosphates 30 mmole Sodium Chloride 0.9% [Normal Saline] 500 ml IV ONETIME - Plan Plan:: Ketoacidosis likely secondary to Jardiance Type 2 diabetes diagnosed on April 21, 2020 * Patient was recently started on Jardiance and metformin. * Blood sugars appear to be well controlled with blood sugars at 188 on presentation to the emergency department. Continue to be less than 200 while receiving D5 half-normal saline * Ketones 7.52-->1.5-->3.45--> 3.53 * Anion gap 27.2-->25.4-->17--> 20.2 * Venous pH 7.15-->7.28 * Hemoglobin A1c 9.6 * Likely slow response due to ketoacidosis from adverse medication effect of Jardiance. * Failed oral trial. Plan * D5 half-normal saline to 200 mL an hour * Fingerstick blood sugar every 2 hours until anion gap closes * Sliding scale insulin every 2 hours * N.p.o. * BMP, mag, phosphate at 1400 * Hold metformin * Stop Jardiance * When patient's anion gap closes and ketones are below 5 we will start patient on diabetic diet. Abdominal pain, nausea, vomiting -improving * Likely secondary to ketoacidosis * Likely delaying improvement in metabolic acidosis Plan * CT of the abdomen with contrast to rule out intra-abdominal process that could be contributing to metabolic acidosis. * Limited abdominal ultrasound showed no gallstones and nothing acute. Positive echogenicity consistent with fatty liver CT of the abdomen with contrast Impression: 1. Severe fatty infiltration within the liver with mild hepatomegaly. 2. Other findings believed to be nonacute. Please see full report for details. VTE prophylaxis with Lovenox CODE STATUS: Full code Disposition: Admit to ICU
[2020-04-27] MEDS ORDERED: Pantoprazole 40 MG Vial IVPUSH ONE (10:41)
[2020-04-27] MEDS ORDERED: Bisacodyl 10 MG Supp RECTAL ONE (12:13)
[2020-04-28] MEDS: Insulin Lispro 100 Units/ML 3 ML Vial SUBCUT SCH ×8 (00:05→14:17)
[2020-04-28] MEDS: D5 1/2 NS w/ 20 mEq/L KCl 1,000 ML IV SCH (05:49)
[2020-04-28] MEDS: Potassium Chloride 10 MEQ in Premix Bag 1 BAG IV SCH ×4 (06:23→10:46)
[2020-04-28] MEDS: Enoxaparin 40 MG/0.4 ML Syringe SUBCUT SCH (07:59)
[2020-04-28] MEDS ORDERED: Pantoprazole 40 MG Tab.CR PO SCH (09:00)
[2020-04-28] MEDS ORDERED: Insulin Glarg,Human.Rec.Analog 100 Unit/ML SUBCUT SCH (09:00)
--- NOTE | 2020-04-28 14:46 | PCM.DCSUM1 ---
Discharge Summary - Hospital Course HPI Initial Comments: 40-year-old obese male with family history of type 2 diabetes presents to the emergency department with abdominal discomfort, nausea, and vomiting. Patient states that for the last month he has had polyuria and polydipsia with increasing fullness and epigastric pain. On Tuesday, April 19 patient's took his blood sugars and they were 480. Next he was seen by his primary care provider and apparently his blood sugars were somewhere above 300 and they started him on metformin 500 mg twice daily and Jardiance. Patient was diagnosed with type 2 diabetes. Patient felt fine the next day or 2, but yesterday started having increased nausea, lightheadedness, and abdominal discomfort. Patient vomited today after waking up from a nap at around 1500 hrs. His fingerstick blood sugar was 175. Patient denies any chest pain, shortness of breath, fever, chills, cough, dysuria, hematochezia, or melena. He was given half of a sandwich in the emergency department which made him nauseated. In the emergency department patient was found to be tachycardic with heart rate of 110-120 with elevated blood pressure 146/115. Initial glucose was 188 with serum ketones of 7.52. Anion gap was 27.2, BUN 14, creatinine 1.2, potassium 5.2, sodium 136. Lipase is 138. AST 83, ALT 133. UA negative for infection but positive for 2+ protein, 3+ occult blood. Patient was given 2 L normal saline bolus and started on D5 half-normal saline at 200 mL an hour. ABG: pH 7.12, PCO2 21.5, PO2 112 on room air, bicarb 6.7. Diagnosis: Stroke: No - Discharge Data Discharge Date: 04/28/20 Discharge Disposition: Home, Self-Care 01 Condition: Good - Referral to Home Health Primary Care Physician: Jess Bowen MD - Patient Summary/Data Consults: Consultations 04/28/20 07:27 Consult to Diabetic Nurse Specialist [CONS] Routine Hospital Course: Patient was admitted to the ICU and placed on an insulin drip and D5 half- normal saline with 20 mEq of KCl per liter. Patient had a very slow recovery of his acidosis and even at day of discharge still had a small anion gap of 18 with a bicarb of 18. Because patient is asymptomatic, tolerating a normal diet , and able to give him insulin at home he will be sent home on Lantus 10 units daily and Humalog sliding scale. Patient's ketoacidosis was felt to be secondary to Jardiance. Therefore patient should not be restarted on Jardiance. CT of the abdomen and limited ultrasound of the abdomen were both performed during hospitalization. Only significant finding was severe fatty liver. Patient will follow-up with diabetic education in 2 days and with his primary care provider this week. - Patient Instructions Diet: Diabetic Diet Activity: As Tolerated Driving: May Drive Today Showering/Bathing: May Shower Other/Special Instructions: Follow-up with primary care provider and asthma educator this week. You are being placed on a long-acting insulin, Lantus, 10 units a day. This will likely need to be increased. You are also being placed on a short acting insulin for mealtimes. We are going to start with a sliding scale (meaning dose of insulin will be based on your blood sugar), but you will need education on insulin management based on carbohydrate intake and not just blood sugar level. - Discharge Plan *PRESCRIPTION DRUG MONITORING PROGRAM REVIEWED*: No *COPY OF PRESCRIPTION DRUG MONITORING REPORT IN PATIENT LORENZO: No Prescriptions/Med Rec: Insulin Glargine,Hum.Rec.Anlog [Lantus Solostar] 10 unit SQ QAM #1 insuln.pen Insulin Lispro [Humalog Kwikpen U-100] See Protocol SQ TIDAC #1 insuln.pen Pantoprazole [ProTONIX] 40 mg PO DAILY #30 tab.cr Home Medications: Home Meds Insulin Glargine,Hum.Rec.Anlog [Lantus Solostar] 10 unit SQ QAM #1 insuln.pen [Rx] Insulin Lispro [Humalog Kwikpen U-100] See Protocol SQ TIDAC #1 insuln.pen 04/28 [Rx] Pantoprazole [ProTONIX] 40 mg PO DAILY #30 tab.cr 04/28/20 [Rx] Oxygen Therapy Mode: Room Air Patient Handouts: Type 2 Diabetes Mellitus, Diagnosis, Adult Forms: ED Department Discharge Referrals: Gracia Marin [Other] (This appt. is for special education paraeducator at [facility], if unable to make this appt. please call and reschedule) Jess Bowen MD [Primary Care Provider] - - Discharge Summary/Plan Comment DC Time >30 min.: Yes Discharge Summary/Plan Comment: Discharged home in good condition. Lantus 10 units in the morning. Humalog sliding scale. - General Info Date of Service: 04/28/20 Admission Dx/Problem (Free Text: Admission Diagnosis/Problem Admission Diagnosis/Problem Diabetic ketoacidosis without coma Subjective Update: Sebastien is feeling much better. He has minimal epigastric discomfort and is tolerating a full diet. Blood sugars are ranging a little higher over the last 24 hours just above 200. Ketones are down to 1.5 and anion gap is 18. Functional Status: Reports: Pain Controlled - Review of Systems General: Reports: No Symptoms HEENT: Reports: No Symptoms Pulmonary: Reports: No Symptoms Cardiovascular: Reports: No Symptoms Gastrointestinal: Reports: No Symptoms Musculoskeletal: Reports: No Symptoms - Patient Data Vitals - Most Recent: Last Vital Signs Temp 98.1 F 04/28/20 07:58 Pulse 108 H 04/27/20 16:10 Resp 19 04/28/20 07:58 BP 140/100 H 04/28/20 07:58 Pulse Ox 97 04/28/20 07:58 Weight - Most Recent: 287 lb 11.2 oz I&O - Last 24 hours: Intake & Output 04/27/20 04/28/20 04/28/20 22:59 06:59 14:59 Intake Total 1500 3279 240 Output Total 600 350 Balance 900 2929 240 Lab Results - Last 24 hrs: Laboratory Results - last 24 hr 04/27/20 04/27/20 04/27/20 Range/Units 14:04 14:05 16:07 WBC (4.23-9.07) K/mm3 RBC (4.63-6.08) M/mm3 Hgb (13.7-17.5) gm/dl Hct (40.1-51.0) % MCV (79.0-92.2) fl MCH (25.7-32.2) pg MCHC (32.2-35.5) g/dl RDW Std Deviation (35.1-43.9) fL Plt Count (163-337) K/mm3 MPV (9.4-12.3) fl Neut % (Auto) (34.0-67.9) % Lymph % (Auto) (21.8-53.1) % [place] % (Auto) (5.3-12.2) % Eos % (Auto) (0.8-7.0) Baso % (Auto) (0.1-1.2) % Neut # (Auto) (1.78-5.38) K/mm3 Lymph # (Auto) (1.32-3.57) K/mm3 [place] # (Auto) (0.30-0.82) K/mm3 Eos # (Auto) (0.04-0.54) K/mm3 Baso # (Auto) (0.01-0.08) K/mm3 Sodium (136-145) mEq/L Potassium (3.5-5.1) mEq/L Chloride (98-107) mEq/L Carbon Dioxide (21-32) mEq/L Anion Gap (5-15) BUN (7-18) mg/dL Creatinine (0.7-1.3) mg/dL Est Cr Clr Drug Dosing Estimated GFR (MDRD) (>60) mL/min BUN/Creatinine Ratio (14-18) Glucose (74-106) mg/dL POC Glucose 238 H 228 H (70-105) mg/dL Calcium (8.5-10.1) mg/dL Phosphorus (2.6-4.7) mg/dL Magnesium (1.8-2.4) mg/dl Total Bilirubin (0.2-1.0) mg/dL AST (15-37) U/L ALT (16-63) U/L Alkaline Phosphatase (46-116) U/L Total Protein (6.4-8.2) g/dl Albumin (3.4-5.0) g/dl Globulin gm/dL Albumin/Globulin Ratio (1-2) Ketones 3.59 (0.0-0.3) mM 04/27/20 04/27/20 04/27/20 Range/Units 18:14 19:58 22:02 WBC (4.23-9.07) K/mm3 RBC (4.63-6.08) M/mm3 Hgb (13.7-17.5) gm/dl Hct (40.1-51.0) % MCV (79.0-92.2) fl MCH (25.7-32.2) pg MCHC (32.2-35.5) g/dl RDW Std Deviation (35.1-43.9) fL Plt Count (163-337) K/mm3 MPV (9.4-12.3) fl Neut % (Auto) (34.0-67.9) % Lymph % (Auto) (21.8-53.1) % [place] % (Auto) (5.3-12.2) % Eos % (Auto) (0.8-7.0) Baso % (Auto) (0.1-1.2) % Neut # (Auto) (1.78-5.38) K/mm3 Lymph # (Auto) (1.32-3.57) K/mm3 [place] # (Auto) (0.30-0.82) K/mm3 Eos # (Auto) (0.04-0.54) K/mm3 Baso # (Auto) (0.01-0.08) K/mm3 Sodium (136-145) mEq/L Potassium (3.5-5.1) mEq/L Chloride (98-107) mEq/L Carbon Dioxide (21-32) mEq/L Anion Gap (5-15) BUN (7-18) mg/dL Creatinine (0.7-1.3) mg/dL Est Cr Clr Drug Dosing Estimated GFR (MDRD) (>60) mL/min BUN/Creatinine Ratio (14-18) Glucose (74-106) mg/dL POC Glucose 216 H 216 H 203 H (70-105) mg/dL Calcium (8.5-10.1) mg/dL Phosphorus (2.6-4.7) mg/dL Magnesium (1.8-2.4) mg/dl Total Bilirubin (0.2-1.0) mg/dL AST (15-37) U/L ALT (16-63) U/L Alkaline Phosphatase (46-116) U/L Total Protein (6.4-8.2) g/dl Albumin (3.4-5.0) g/dl Globulin gm/dL Albumin/Globulin Ratio (1-2) Ketones (0.0-0.3) mM 04/28/20 04/28/20 04/28/20 Range/Units 00:04 02:04 03:59 WBC (4.23-9.07) K/mm3 RBC (4.63-6.08) M/mm3 Hgb (13.7-17.5) gm/dl Hct (40.1-51.0) % MCV (79.0-92.2) fl MCH (25.7-32.2) pg MCHC (32.2-35.5) g/dl RDW Std Deviation (35.1-43.9) fL Plt Count (163-337) K/mm3 MPV (9.4-12.3) fl Neut % (Auto) (34.0-67.9) % Lymph % (Auto) (21.8-53.1) % [place] % (Auto) (5.3-12.2) % Eos % (Auto) (0.8-7.0) Baso % (Auto) (0.1-1.2) % Neut # (Auto) (1.78-5.38) K/mm3 Lymph # (Auto) (1.32-3.57) K/mm3 [place] # (Auto) (0.30-0.82) K/mm3 Eos # (Auto) (0.04-0.54) K/mm3 Baso # (Auto) (0.01-0.08) K/mm3 Sodium (136-145) mEq/L Potassium (3.5-5.1) mEq/L Chloride (98-107) mEq/L Carbon Dioxide (21-32) mEq/L Anion Gap (5-15) BUN (7-18) mg/dL Creatinine (0.7-1.3) mg/dL Est Cr Clr Drug Dosing Estimated GFR (MDRD) (>60) mL/min BUN/Creatinine Ratio (14-18) Glucose (74-106) mg/dL POC Glucose 187 H 198 H 201 H (70-105) mg/dL Calcium (8.5-10.1) mg/dL Phosphorus (2.6-4.7) mg/dL Magnesium (1.8-2.4) mg/dl Total Bilirubin (0.2-1.0) mg/dL AST (15-37) U/L ALT (16-63) U/L Alkaline Phosphatase (46-116) U/L Total Protein (6.4-8.2) g/dl Albumin (3.4-5.0) g/dl Globulin gm/dL Albumin/Globulin Ratio (1-2) Ketones (0.0-0.3) mM 04/28/20 04/28/20 04/28/20 Range/Units 04:30 04:30 04:30 WBC 7.63 (4.23-9.07) K/mm3 RBC 4.80 (4.63-6.08) M/mm3 Hgb 15.5 (13.7-17.5) gm/dl Hct 45.5 (40.1-51.0) % MCV 94.8 H (79.0-92.2) fl MCH 32.3 H (25.7-32.2) pg MCHC 34.1 (32.2-35.5) g/dl RDW Std Deviation 45.6 H (35.1-43.9) fL Plt Count 217 (163-337) K/mm3 MPV 11.4 (9.4-12.3) fl Neut % (Auto) 43.9 (34.0-67.9) % Lymph % (Auto) 44.0 (21.8-53.1) % [place] % (Auto) 10.2 (5.3-12.2) % Eos % (Auto) 0.9 (0.8-7.0) Baso % (Auto) 0.5 (0.1-1.2) % Neut # (Auto) 3.34 (1.78-5.38) K/mm3 Lymph # (Auto) 3.36 (1.32-3.57) K/mm3 [place] # (Auto) 0.78 (0.30-0.82) K/mm3 Eos # (Auto) 0.07 (0.04-0.54) K/mm3 Baso # (Auto) 0.04 (0.01-0.08) K/mm3 Sodium 143 (136-145) mEq/L Potassium 3.4 L (3.5-5.1) mEq/L Chloride 110 H (98-107) mEq/L Carbon Dioxide 18 L (21-32) mEq/L Anion Gap 18.4 H (5-15) BUN 6 L (7-18) mg/dL Creatinine 1.0 (0.7-1.3) mg/dL Est Cr Clr Drug Dosing TNP Estimated GFR (MDRD) > 60 (>60) mL/min BUN/Creatinine Ratio 6.0 L (14-18) Glucose 223 H (74-106) mg/dL POC Glucose (70-105) mg/dL Calcium 8.6 (8.5-10.1) mg/dL Phosphorus 2.1 L (2.6-4.7) mg/dL Magnesium 1.9 (1.8-2.4) mg/dl Total Bilirubin 0.9 (0.2-1.0) mg/dL AST 55 H (15-37) U/L ALT 109 H (16-63) U/L Alkaline Phosphatase 63 (46-116) U/L Total Protein 7.1 (6.4-8.2) g/dl Albumin 3.2 L (3.4-5.0) g/dl Globulin 3.9 gm/dL Albumin/Globulin Ratio 0.8 L (1-2) Ketones 1.5 (0.0-0.3) mM 04/28/20 04/28/20 04/28/20 Range/Units 05:48 07:48 09:43 WBC (4.23-9.07) K/mm3 RBC (4.63-6.08) M/mm3 Hgb (13.7-17.5) gm/dl Hct (40.1-51.0) % MCV (79.0-92.2) fl MCH (25.7-32.2) pg MCHC (32.2-35.5) g/dl RDW Std Deviation (35.1-43.9) fL Plt Count (163-337) K/mm3 MPV (9.4-12.3) fl Neut % (Auto) (34.0-67.9) % Lymph % (Auto) (21.8-53.1) % [place] % (Auto) (5.3-12.2) % Eos % (Auto) (0.8-7.0) Baso % (Auto) (0.1-1.2) % Neut # (Auto) (1.78-5.38) K/mm3 Lymph # (Auto) (1.32-3.57) K/mm3 [place] # (Auto) (0.30-0.82) K/mm3 Eos # (Auto) (0.04-0.54) K/mm3 Baso # (Auto) (0.01-0.08) K/mm3 Sodium (136-145) mEq/L Potassium (3.5-5.1) mEq/L Chloride (98-107) mEq/L Carbon Dioxide (21-32) mEq/L Anion Gap (5-15) BUN (7-18) mg/dL Creatinine (0.7-1.3) mg/dL Est Cr Clr Drug Dosing Estimated GFR (MDRD) (>60) mL/min BUN/Creatinine Ratio (14-18) Glucose (74-106) mg/dL POC Glucose 233 H 224 H 241 H (70-105) mg/dL Calcium (8.5-10.1) mg/dL Phosphorus (2.6-4.7) mg/dL Magnesium (1.8-2.4) mg/dl Total Bilirubin (0.2-1.0) mg/dL AST (15-37) U/L ALT (16-63) U/L Alkaline Phosphatase (46-116) U/L Total Protein (6.4-8.2) g/dl Albumin (3.4-5.0) g/dl Globulin gm/dL Albumin/Globulin Ratio (1-2) Ketones (0.0-0.3) mM 04/28/20 04/28/20 Range/Units 12:01 14:15 WBC (4.23-9.07) K/mm3 RBC (4.63-6.08) M/mm3 Hgb (13.7-17.5) gm/dl Hct (40.1-51.0) % MCV (79.0-92.2) fl MCH (25.7-32.2) pg MCHC (32.2-35.5) g/dl RDW Std Deviation (35.1-43.9) fL Plt Count (163-337) K/mm3 MPV (9.4-12.3) fl Neut % (Auto) (34.0-67.9) % Lymph % (Auto) (21.8-53.1) % [place] % (Auto) (5.3-12.2) % Eos % (Auto) (0.8-7.0) Baso % (Auto) (0.1-1.2) % Neut # (Auto) (1.78-5.38) K/mm3 Lymph # (Auto) (1.32-3.57) K/mm3 [place] # (Auto) (0.30-0.82) K/mm3 Eos # (Auto) (0.04-0.54) K/mm3 Baso # (Auto) (0.01-0.08) K/mm3 Sodium (136-145) mEq/L Potassium (3.5-5.1) mEq/L Chloride (98-107) mEq/L Carbon Dioxide (21-32) mEq/L Anion Gap (5-15) BUN (7-18) mg/dL Creatinine (0.7-1.3) mg/dL Est Cr Clr Drug Dosing Estimated GFR (MDRD) (>60) mL/min BUN/Creatinine Ratio (14-18) Glucose (74-106) mg/dL POC Glucose 198 H 220 H (70-105) mg/dL Calcium (8.5-10.1) mg/dL Phosphorus (2.6-4.7) mg/dL Magnesium (1.8-2.4) mg/dl Total Bilirubin (0.2-1.0) mg/dL AST (15-37) U/L ALT (16-63) U/L Alkaline Phosphatase (46-116) U/L Total Protein (6.4-8.2) g/dl Albumin (3.4-5.0) g/dl Globulin gm/dL Albumin/Globulin Ratio (1-2) Ketones (0.0-0.3) mM Med Orders - Current: Current Medications Enoxaparin Sodium (Lovenox) 40 mg SUBCUT DAILY [facility] Last Admin: 04/28/20 07:59 Dose: 40 mg Hydromorphone HCl (Dilaudid) 0.5 mg IVPUSH Q2H PRN PRN Reason: Abdominal Pain Last Admin: 04/26/20 03:57 Dose: 0.5 mg Potassium Chloride/Dextrose/Sod Cl (D5 1/2 Ns W/ 20 Meq/L Kcl) 1,000 mls @ 200 mls/hr IV ASDIRECTED [facility] Last Admin: 04/28/20 05:49 Dose: 125 mls/hr Insulin Glargine (Lantus) 10 unit SUBCUT DAILY [facility] Last Admin: 04/28/20 07:59 Dose: 10 units Insulin Human Lispro (Humalog) 0 unit SUBCUT Q2H [facility]; Protocol Last Admin: 04/28/20 14:17 Dose: 4 units Ondansetron HCl (Zofran) 4 mg IV Q4H PRN PRN Reason: Nausea/Vomiting Last Admin: 04/27/20 07:44 Dose: 4 mg Pantoprazole Sodium (Protonix) 40 mg PO DAILY [facility] Last Admin: 04/28/20 07:59 Dose: 40 mg Sodium Chloride (Saline Flush) 10 ml FLUSH ASDIRECTED PRN PRN Reason: Keep Vein Open Last Admin: 04/24/20 18:50 Dose: 10 ml Trazodone HCl (Trazodone) 50 mg PO BEDTIME PRN PRN Reason: Insomnia Last Admin: 04/25/20 00:39 Dose: 50 mg Discontinued Medications Bisacodyl (Dulcolax) 10 mg RECTAL ONETIME ONE Stop: 04/27/20 12:14 Last Admin: 04/27/20 13:01 Dose: 10 mg Diatrizoate Meglum/Diatrizoate Sod (Gastrografin 37%) 120 ml PO ONETIME ONE Stop: 04/25/20 09:44 Last Admin: 04/25/20 10:09 Dose: 45 ml Sodium Chloride (Normal Saline) 1,000 mls @ 999 mls/hr IV ASDIRECTED ONE Stop: 04/24/20 19:28 Last Admin: 04/24/20 18:50 Dose: 999 mls/hr Sodium Chloride (Normal Saline) 1,000 mls @ 999 mls/hr IV ONETIME ONE Stop: 04/24/20 20:43 Last Admin: 04/24/20 20:06 Dose: 999 mls/hr Lactated Ringer's (Ringers, Lactated) 1,000 mls @ 250 mls/hr IV ASDIRECTED [facility] Dextrose/Sodium Chloride (Dextrose 5%-1/2 Ns) 1,000 mls @ 200 mls/hr IV ASDIRECTED [facility] Last Admin: 04/26/20 18:00 Dose: 200 mls/hr Sodium Chloride (Normal Saline) 500 mls @ 999 mls/hr IV .BOLUS ONE Stop: 04/25/20 08:48 Last Admin: 04/25/20 08:27 Dose: 999 mls/hr Potassium Chloride 10 meq/ (Premix) 100 mls @ 100 mls/hr IV Q1H [facility] Stop: 04/26/20 12:59 Potassium Phosphate 30 mmole/ (Sodium Chloride) 510 mls @ 102 mls/hr IV ONETIME ONE Stop: 04/26/20 14:29 Last Admin: 04/26/20 09:18 Dose: 102 mls/hr Potassium Phosphate 30 mmole/ (Sodium Chloride) 510 mls @ 102 mls/hr IV ONETIME ONE Stop: 04/27/20 13:29 Last Admin: 04/27/20 08:38 Dose: 102 mls/hr Potassium Chloride 10 meq/ (Premix) 100 mls @ 100 mls/hr IV Q1H [facility] Stop: 04/28/20 10:14 Last Admin: 04/28/20 10:46 Dose: 100 mls/hr Insulin Human Lispro (Humalog) 0 unit SUBCUT Q2H [facility]; Protocol Last Admin: 04/25/20 13:52 Dose: 2 unit Insulin Human Lispro (Humalog) 0 unit SUBCUT QIDACANDBED [facility]; Protocol Iopamidol (Isovue-370 (76%)) 100 ml IVPUSH ONETIME ONE Stop: 04/25/20 09:44 Last Admin: 04/25/20 10:09 Dose: 100 ml Metoclopramide HCl (Reglan) 10 mg IVPUSH ONETIME ONE Stop: 04/24/20 22:13 Last Admin: 04/24/20 22:30 Dose: 10 mg Metoclopramide HCl (Reglan) 10 mg IVPUSH ONETIME ONE Stop: 04/25/20 08:43 Last Admin: 04/25/20 08:49 Dose: 10 mg Ondansetron HCl (Zofran) 4 mg IVPUSH ONETIME ONE Stop: 04/24/20 18:30 Last Admin: 04/24/20 18:50 Dose: 4 mg Pantoprazole Sodium (Protonix Iv) 40 mg IVPUSH ONETIME ONE Stop: 04/27/20 10:42 Last Admin: 04/27/20 10:54 Dose: 40 mg Sodium Chloride (Saline Flush) 10 ml FLUSH ONETIME PRN PRN Reason: IV FLUSH Stop: 04/25/20 12:00 Last Admin: 04/25/20 10:09 Dose: 10 ml - Exam Quality Assessment: Denies: Supplemental Oxygen General: Reports: Alert, Oriented HEENT: Reports: Pupils Equal, Mucous Membr. Moist/[place] Neck: Reports: Supple Lungs: Reports: Clear to Auscultation, Normal Respiratory Effort Cardiovascular: Reports: Regular Rate, Regular Rhythm GI/Abdominal Exam: Normal Bowel Sounds, Soft, Non-Tender, No Organomegaly, No Distention, No Abnormal Bruit, No Mass Back Exam: Reports: Normal Inspection, Full Range of Motion Extremities: Normal Inspection, Normal Range of Motion, Non-Tender, No Pedal Edema, Normal Capillary Refill Skin: Reports: Warm, Dry, Intact Psy/Mental Status: Reports: Alert, Normal Affect, Normal Mood
== END 2020-04-28 15:15 | disposition home or self-care (01) | DRG 420 ==
LOC: JD.ED 17:52 → JD.ICU 21:19
PROVIDERS: ADMIT Family Medicine; ATTEND Family Medicine
DX: E11.10 Type 2 diabetes mellitus with ketoacidosis without coma (principal); T38.3X5A Adverse effect of insulin and oral hypoglycemic [antidiabetic] drugs, initial encounter; I10 Essential (primary) hypertension; E66.9 Obesity, unspecified; Z79.899 Other long term (current) drug therapy; Z79.84 Long term (current) use of oral hypoglycemic drugs
CPT/HCPCS: 36415; 36600; 71045; 71045-26; 74019; 74019-26; 74177; 74177-26; 76705; 76705-26; 80048; 80053; 80306; 81001; 82009; 82800; 82803; 82962; 83036; 83605; 83690; 83735; 83930; 84100; 85025; 93005; 93010; 96361; 96374; 99222; 99232; 99239; 99284; 99285-25; A9270-GY; C9113; J1170; J1650; J1815-GY; J2405; J2765; J3480; J3490; J7030; J7040; J7042; Q9963; Q9967

== ENCOUNTER 2020-06-04 08:01 | Day surgery (SDC) | payer BC ==
[~2020-06-04 08:01] MED LIST: Lactated Ringers 1,000 ML IV SCH; Lidocaine 1%/Sod Bicarbonate in NS 8.4% 1 ML Syringe IDERM PRN; Sodium Chloride 0.9% 10 ML Syringe FLUSH PRN
[2020-06-04] MEDS ORDERED: Ketamine 500 mg/10 ML MDV ONE (08:32)
[2020-06-04] MEDS ORDERED: fentaNYL 100 MCG/2 ML SDV ONE (08:32)
[2020-06-04] MEDS ORDERED: Propofol 200 MG/20 ML SDV ONE ×2 (08:32→11:00)
[2020-06-04] MEDS ORDERED: Lidocaine 1% 4 ML ONE (08:32)
[2020-06-04] MEDS ORDERED: Midazolam 1 MG/ML 2 ML SDV ONE (08:38)
--- NOTE | 2020-06-04 09:01 | PCM.PREANE ---
Preanesthetic Assessment - Procedure Proposed Procedure: EGD Colonoscopy - Anesthesia/Transfusion/Family Hx Anesthesia History: Prior Anesthesia Without Reaction Family History of Anesthesia Reaction: No - Review of Systems General: No Symptoms Pulmonary: No Symptoms Cardiovascular: No Symptoms Gastrointestinal: Abdominal Pain (Gastric Pain related to GERD) Neurological: No Symptoms Other: Reports: None (Obesity BMI 40), Diabetes (Type II Blood glucose 177 this morning. Normal level for morning per patient. ) - Physical Assessment NPO Status Date: 06/03/20 NPO Status Time: 23:00 Vital Signs: Last Vital Signs Temp 36.6 C 06/04/20 07:54 Pulse 92 06/04/20 07:54 Resp 20 06/04/20 07:54 BP 149/98 H 06/04/20 07:54 Pulse Ox 97 06/04/20 07:54 Height: 1.8 m Weight: 129.727 kg ASA Class: 3 Mental Status: Alert & Oriented x3 Airway Class: Mallampati = 3 Dentition: Reports: Missing Tooth/Teeth (Right lower molar removed, bone coming through gum. Front tooth large chip. ), Caries Thyro-Mental Finger Breadths: 3 Mouth Opening Finger Breadths: 3 ROM/Head Extension: Full ([place]) Lungs: Clear to Auscultation, Normal Respiratory Effort Cardiovascular: Regular Rate, Regular Rhythm - Lab Values: Laboratory Last Values POC Glucose 177 mg/dL (70-105) H 06/04/20 08:19 COVID-19 PCR Not detected (NOT DETECT) 06/02/20 08:45 - Allergies Allergies/Adverse Reactions: Allergies Allergy/AdvReac Type Severity Reaction Status Date / Time empagliflozin Allergy Severe ketoacidosi Verified 06/04/20 08:39 [From Jardiance] s - Acknowledgements Anesthesia Type Planned: MAC Pt an Appropriate Candidate for the Planned Anesthesia: Yes Alternatives and Risks of Anesthesia Discussed w Pt/Guardian: Yes Pt/Guardian Understands and Agrees with Anesthesia Plan: Yes PreAnesthesia Questionnaire HEENT History: Reports: Other (See Below) Other HEENT History: streph pharyngitis Cardiovascular History: Reports: Hypertension Respiratory History: Reports: None Gastrointestinal History: Reports: Diverticulosis, Other (See Below) Other Gastrointestinal History: fatty liver Genitourinary History: Reports: None 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 Neurological History: Reports: None Psychiatric History: Reports: None Endocrine/Metabolic History: Reports: Diabetes, Type II, Obesity/BMI 30+ Hematologic History: Reports: None Immunologic History: Reports: None Oncologic (Cancer) History: Reports: None Dermatologic History: Reports: None - Infectious Disease History Infectious Disease History: Reports: None - Past Surgical History Head Surgeries/Procedures: Reports: None HEENT Surgical History: Reports: Oral Surgery, Tonsillectomy Cardiovascular Surgical History: Reports: None Respiratory Surgical History: Reports: None GI Surgical History: Reports: None Female Surgical History: Reports: None Male Surgical History: Reports: None Endocrine Surgical History: Reports: None Neurological Surgical History: Reports: None Musculoskeletal Surgical History: Reports: Other (See Below) Other Musculoskeletal Surgeries/Procedures:: L foot surgery Oncologic Surgical History: Reports: None Dermatological Surgical History: Reports: None - SUBSTANCE USE Smoking Status *Q: Never Smoker Recreational Drug Use History: No - HOME MEDS Home Medications: Home Meds Insulin Aspart [NovoLOG] See Protocol SQ TID 06/03/20 [History] Omeprazole 40 mg PO QAM 06/03/20 [History] Sucralfate 1 gm PO QID 06/03/20 [History] Insulin Detemir [Levemir] 20 unit SUBCUT DAILY 06/04/20 [History] - CURRENT (IN HOUSE) MEDS Current Meds: Current Medications Lactated Ringer's (Ringers, Lactated) 1,000 mls @ 125 mls/hr IV ASDIRECTED [facility] Stop: 06/04/20 23:00 Last Admin: 06/04/20 08:17 Dose: 125 mls/hr Documented by: Lidocaine/Sodium Bicarbonate (Buffered Lidocaine 1% In Ns 8.4%) 0.25 ml IDERM ONETIME PRN PRN Reason: Prior to IV Start Stop: 06/04/20 18:00 Last Admin: 06/04/20 08:17 Dose: 0.25 ml Documented by: Sodium Chloride (Saline Flush) 10 ml FLUSH ASDIRECTED PRN PRN Reason: Keep Vein Open Stop: 06/04/20 18:00 Discontinued Medications Fentanyl (Sublimaze) Confirm Administered Dose 100 mcg .ROUTE .STK-MED ONE Stop: 06/04/20 08:33 Lidocaine HCl (Xylocaine-Mpf 1%) Confirm Administered Dose 4 mls @ as directed .ROUTE .STK-MED ONE Stop: 06/04/20 08:33 Ketamine HCl (Ketalar) Confirm Administered Dose 500 mg .ROUTE .STK-MED ONE Stop: 06/04/20 08:33 Midazolam HCl (Versed 1 Mg/Ml) Confirm Administered Dose 2 mg .ROUTE .STK-MED ONE Stop: 06/04/20 08:39 Propofol (Diprivan 20 Ml) Confirm Administered Dose 400 mg .ROUTE .STK-MED ONE Stop: 06/04/20 08:33
[2020-06-04] MEDS ORDERED: Lactated Ringers 1,000 ML ONE (10:26)
--- NOTE | 2020-06-04 11:22 | PCM.PRNOTE ---
- Free Text/Narrative Note: Operative Report Date of Procedure: June 04, 2020 Pre Op Diagnosis: Positive FIT, Epigastric pain, melena, coffee ground emesis Post-Op Diagnosis: Same Operative Procedures: 1. EGD with biopsy 2. Colonoscopy Primary Surgeon: Alva Singh MD Anesthesia Provider: Maykel Montague CRNA Anesthesia Technique: MAC IV Fluid Replacement, Intraop: []cc crystalloid Output, Urine Amount: 0cc EBL in mLs: 0cc Findings: 1. Gastritis 2. Bile reflux 3. Sliding Hiatal hernia 1-2cm 4. Irregular GE junction 5. Diverticulosis 6. Transverse colon polyp 7. Sigmoid colon polyp x2 8. Proctitis 9. Internal hemorrhoids Specimens: 1. Duodenum biopsy 2. Antrum biopsy 3. GE junction biopsy 4. Transverse polyp 5. Sigmoid polyp x2 6. Proctitis Drain/Tubes: None Indication: The patient is a 40-year-old gentleman who presented to the clinic with findings of a positive FIT. The patient reported symptoms of melena and coffee-ground emesis as well as epigastric pain. The patient was consented for a diagnostic EGD and colonoscopy. Risks of bleeding, and perforation were discussed, and the patient agreed to the risks and wished to proceed. Description of the procedure: The patient was taken back to the endoscopy suite, and placed in the left lateral decubitus position. A bite block was placed. The patient was sedated with MAC anesthesia. The Olympus video endoscope was inserted into the oropharynx and guided under direct vision into the esophagus, stomach, and duodenum. The duodenal bulb and second portion of the duodenum were unremarkable. The gastric antrum was inspected and cold biopsy forceps were used to take tissue samples for H. pylori. There was evidence of gastritis as seen by erythema. the scope was withdrawn to the stomach and retroflexed. There was increased bilious fluid pooling in the stomach which was suctioned. The scope was withdrawn to the esophagus. A this point we noted a 1-2cm sliding hiatal hernia. No specific Barretts esophagus changes were noted, but the Z line was somewhat irregular. Biopsies were taken in this area using cold biopsy forceps. The endoscope was then withdrawn. Next, anorectal examination was performed. No lesions, masses or hemorrhoids were noted externally or on palpation, but the patient did have an approximate 1.3 cm pedunculated anal skin tag. The scope was placed into the rectum and advanced to cecum. Upon reaching the cecum, and the patients cecum was entered. There was minimal tortuosity of the colon. The ileocecal valve was well visualized and the appendiceal orifice identified. At this point, the scope was slowly withdrawn, paying attention to the mucosa. The patient had good bowel prep, 90-95% of the mucosa was visible. Diverticulosis was noted in the descending and sigmoid colon. There were 3 colon polyps removed, one in the transverse colon and 2 in the sigmoid colon. These measured 2 to 3 mm and were sessile. They were removed using a jumbo cold biopsy forceps. In the rectum there appeared to be a healing linear erosions as well as some scattered petechiae. This tissue was consistent with proctitis and biopsied using a jumbo cold biopsy forceps. The scope was retroflexed and some hemorrhoidal tissue was noted. The scope was placed back in the lumen and excess air was aspirated. The scope was removed. The patient tolerated the procedure very well. Complications: None apparent Condition: The patient was transported to PACU in stable condition. Alva Singh MD General Surgery
--- NOTE | 2020-06-04 11:27 | PCM.OPNOTE ---
- General Post-Op/Procedure Note Date of Surgery/Procedure: 06/04/20 Operative Procedure(s): EGD and colonoscopy Findings: 1. Gastritis 2. Bile reflux 3. Sliding Hiatal hernia 1-2cm 4. Irregular GE junction 5. Diverticulosis 6. Transverse colon polyp 7. Sigmoid colon polyp x2 8. Proctitis 9. Internal hemorrhoids Pre Op Diagnosis: Positive FIT, Epigastric pain, melena, coffee ground emesis Post-Op Diagnosis: same Anesthesia Technique: MAC Primary Surgeon: Alva Singh Anesthesia Provider: Stephy Montague Pathology: 1. Duodenum biopsy 2. Antrum biopsy 3. GE junction biopsy 4. Transverse polyp 5. Sigmoid polyp x2 6. Proctitis Fluid Replacement, Intraop: 1,500 Output, Urine Amount: 0 EBL in mLs: 0 Complications: none apparent Condition: Good
--- NOTE | 2020-06-04 11:31 | PCM48HPAN ---
Post Anesthesia Note - EVALUATION WITHIN 48HRS OF ANESTHETIC Vital Signs in Normal Range: Yes Patient Participated in Evaluation: Yes Respiratory Function Stable: Yes Airway Patent: Yes Cardiovascular Function Stable: Yes Hydration Status Stable: Yes Pain Control Satisfactory: Yes Nausea and Vomiting Control Satisfactory: Yes Mental Status Recovered: Yes Vital Signs: Last Vital Signs Temp 36.6 C 06/04/20 07:54 Pulse 92 06/04/20 07:54 Resp 20 06/04/20 07:54 BP 149/98 H 06/04/20 07:54 Pulse Ox 97 06/04/20 07:54 1123 129/60 97 14 94% 98.2F
[2020-06-04] MEDS ORDERED: HYDROmorphone 0.5 MG/0.5 ML Syringe IVPUSH PRN (15:14)
[2020-06-04] MEDS ORDERED: fentaNYL 100 MCG/2 ML SDV IVPUSH PRN (15:14)
== END 2020-06-04 12:38 | disposition home or self-care (01) ==
LOC: JD.SDS 08:01
PROVIDERS: ATTEND Surgery
DX: K63.5 Polyp of colon (principal); K29.00 Acute gastritis without bleeding; K29.50 Unspecified chronic gastritis without bleeding; K44.9 Diaphragmatic hernia without obstruction or gangrene; K57.30 Diverticulosis of large intestine without perforation or abscess without bleeding; K64.8 Other hemorrhoids; K62.89 Other specified diseases of anus and rectum; K31.89 Other diseases of stomach and duodenum; K21.9 Gastro-esophageal reflux disease without esophagitis; K22.8 Other specified diseases of esophagus; E11.9 Type 2 diabetes mellitus without complications; Z79.4 Long term (current) use of insulin; Z79.899 Other long term (current) drug therapy; Z83.71 Family history of colonic polyps
CPT/HCPCS: 43239; 45380; 82962; 87635; J2001; J2250; J2704; J3010; J7120; 00813; U0002